=== PATIENT | male | born 1945 | race Caucasian/White ===

== ENCOUNTER 2019-05-19 02:29 | Inpatient (IN) | payer MEDICARE, BC ==
[2019-05-19] VITALS (8 sets, daily range): BP systolic 130–180; BP diastolic 70–92
[~2019-05-19] VITALS: Ht 185.4 cm; Wt 91.8 kg
[~2019-05-19 02:29] MED LIST: BACTRIM-DS1 EA PO; BENICAR5 MG PO; CEPHALEXIN500 MG PO; FISH OIL500 MG PO; FOLIC ACID0.4 MG PO; VICODIN 5-5001 EACH PO
--- NOTE | 2019-05-19 02:45 | NUR ---
ED Nurse Note: Patient walked in to ER from home due to severe abdominal pain. Stated that was at the [employer] and thought it is food poisoning. AAO x4, VSS at this time, skin is dry warm to touch.
[2019-05-19] MEDS ORDERED: Isovue-370 150ml vial INJ PRN (03:00)
[2019-05-19] MEDS ORDERED: Morphine Sulfate 4mg/ml Inj (IV USE ONLY) IVP ONE (03:00)
--- NOTE | 2019-05-19 03:12 | Emergency Room Report ---
History of Present Illness General Chief Complaint: Abdominal Pain Source: Patient Present Illness HPI The patient presents with 2 hours of severe lower abdominal pain. He was at a dinner republic[employer] and was drinking alcohol and had shellfish. He has been vomiting without any coffee grounds or blood. He still feels nauseated. The pain is constant and severe. Rates it 9/10. Patient has a history of atrial fibrillation and is on a blood thinner at this time. 2 days ago he was started on Keflex for tear in his nose on the left-hand side. Denies any dysuria, hematuria or change in his bowels. He is never had pain like this before. Intermittent A fib. Suggest to see egg breaker. Patient denies chest pain, shortness of breath edema, calf pain H/O sleep apnea and uses CPAP at home. Hernia surgery did not involve intraabdominal procedure - mesh placed. Allergies: Coded Allergies: No Known Allergies (Unverified , 10/07/12) Patient History Past Medical History: see triage record Past Surgical History: other - hernia surgery Social History: Reports: alcohol use; Denies: smoking - distant history - none > 10 years Social History Narrative Reviewed Nursing Documentation: PMH: Agreed; PSxH: Agreed Nursing Documentation-PMH Hx Hypertension: Yes Hx COPD: Yes - CPAP Hx Cancer: Yes - PROSTATE, IN REMISION Review of Systems All Other Systems: negative except mentioned in HPI Physical Exam Vital Signs Date Time Temp Pulse Resp B/P (MAP) Pulse Ox O2 Delivery O2 Flow Rate FiO2 05/19/19 02:31 97.7 62 16 156/92 (113) 96 Room Air Sp02 EP Interpretation: reviewed, normal General Appearance: well appearing, GCS 15, mild distress Head: normocephalic Eyes: bilateral eye PERRL, bilateral eye EOMI, bilateral eye Scleral Injection ENT: moist mucus membranes Neck: supple Respiratory: lungs clear, normal breath sounds Cardiovascular #1: regular rate, rhythm Cardiovascular #2: 2+ radial (R), 2+ femoral (R), 2+ femoral (L) Gastrointestinal: normal inspection, normal bowel sounds, no mass, non- distended, no guarding, no rebound, tenderness - reported mid-lower abdomen tenderness, but SOFT Genitourinary: no CVA tenderness Musculoskeletal: back normal, normal range of motion Neurologic: alert, oriented x3, grossly normal Psychiatric: other - Pain Skin: no rash Medical Decision Making Diagnostic Impression: Primary Impression: Abdominal pain Qualified Codes: R10.30 - Lower abdominal pain, unspecified Additional Impressions: Leukocytosis Qualified Codes: D72.828 - Other elevated white blood cell count Small bowel obstruction ER Course The patient presents with acute onset lower abdominal pain. Differential includes peripheral diverticulum, aortic aneurysm/dissection, embolic phenomena to mesenteric artery, ischemic bowel, pancreatitis, appendicitis amongst others. Based on the exam and the degree of pain ischemic bowel is highly suspected. The fact that he is on a anticoagulant and there is an acute onset embolic phenomena is highly likely. Before anticoagulation will be started the patient needs to have an aneurysm excluded. Although there are equal pulses femoral he the severity of the pain needs to have this diagnosis ascertained or excluded. Patient will be evaluated with EKG, chest x-ray and labs. A CT angiogram is ordered. EKG without injury. Chest x-ray no infiltrate and mediastinum is normal sized. White count is elevated with a left shift. There is renal insufficiency with a creatinine of 1.4. Her pain after initial dose of morphine. Dilaudid 2 mg given IV. Some relief after this. CT angiogram performed. 5:30 - pain 2/10. Abdomen soft. Pulses equal femorally. Call [facility] again - 5:30. Call [facility] 5:48 - "he is reading it" No aneurism, ASPVD. Small bowel obstruction. Due to the fact pain resolved, consider bowel angina. Contacting his vest busheler Dr. Ramos. 6:15 recall 6:38 - Discussed with Dr. Ramos who wants the patient at [facility]. Working to transfer. Pain 3-4. Wants to move bowels. Repeat Dilaudid. [facility] has no beds. Placed on wait list for transfer. Request of Dr. Lara for surgeon to consult. He will evaluate patient. Not surgical abdomen at time of admission. Laboratory Tests Test 05/19/19 03:00 White Blood Count 11.0 K/UL (4.8-10.8) H Red Blood Count 4.27 M/UL (4.70-6.10) L Hemoglobin 14.2 G/DL (14.2-18.0) Hematocrit 42.7 % (42.0-52.0) Mean Corpuscular Volume 100 FL (80-99) H Mean Corpuscular Hemoglobin 33.4 PG (27.0-31.0) H Mean Corpuscular Hemoglobin Concent 33.3 G/DL (32.0-36.0) Red Cell Distribution Width 12.6 % (11.6-14.8) Platelet Count 300 K/UL (150-450) Mean Platelet Volume 6.7 FL (6.5-10.1) Neutrophils (%) (Auto) 83.8 % (45.0-75.0) H Lymphocytes (%) (Auto) 11.7 % (20.0-45.0) L Monocytes (%) (Auto) 3.9 % (1.0-10.0) Eosinophils (%) (Auto) 0.3 % (0.0-3.0) Basophils (%) (Auto) 0.3 % (0.0-2.0) Prothrombin Time 10.0 SEC (9.30-11.50) Prothrombin Time INR 0.9 (0.9-1.1) PTT 23 SEC (23-33) Sodium Level 140 MMOL/L (136-145) Potassium Level 4.7 MMOL/L (3.5-5.1) Chloride Level 106 MMOL/L (98-107) Carbon Dioxide Level 26 MMOL/L (21-32) Anion Gap 8 mmol/L (5-15) Blood Urea Nitrogen 26 mg/dL (7-18) H Creatinine 1.4 MG/DL (0.55-1.30) H Estimate Glomerular Filtration Rate mL/min (>60) Glucose Level 137 MG/DL (74-106) H Calcium Level 10.2 MG/DL (8.5-10.1) H Total Bilirubin 0.5 MG/DL (0.2-1.0) Aspartate Amino Transferase (AST) 37 U/L (15-37) Alanine Aminotransferase (ALT) 38 U/L (12-78) Alkaline Phosphatase 56 U/L (46-116) Total Creatine Kinase 310 U/L (26-308) H Troponin I 0.009 ng/mL (0.000-0.056) Total Protein 7.7 G/DL (6.4-8.2) Albumin 4.0 G/DL (3.4-5.0) Globulin 3.7 g/dL Albumin/Globulin Ratio 1.1 (1.0-2.7) Lipase 118 U/L (73-393) EKG Diagnostic Results Rate: bradycardiac Rhythm: NSR ST Segments: no acute changes Rhythm Strip Diag. Results EP Interpretation: yes Rhythm: no PVC's, no ectopy, other - bradycardia Chest X-Ray Diagnostic Results Chest X-Ray Diagnostic Results : Chest X-Ray Ordered: Yes # of Views/Limited/Complete: 1 View Indication: Other EP Interpretation: Yes Interpretation: no consolidation, no effusion, no pneumothorax, other - No mediastinal widening Impression: No acute disease Electronically Signed by: Electronically signed by Neil Treadwell MD CT/MRI/US Diagnostic Results CT/MRI/US Diagnostic Results : Imaging Test Ordered: CTA abdomen/pelvis Impression Atherosclerotic changes without AAA or dissection. Dilated fluid-filled small bowel suspicious for obstructive process with suspected distal transition in left lower quadrant. Trace free fluid with interloop/mesenteric edema. Recommend follow-up. Last Vital Signs Date Time Temp Pulse Resp B/P (MAP) Pulse Ox O2 Delivery O2 Flow Rate FiO2 05/19/19 08:16 Nasal Cannula 2.0 05/19/19 08:00 97.2 51 17 133/74 (93) 98 Status: improved Disposition: ADMITTED INPATIENT Condition: Serious Neil Treadwell MD May 19, 2019 03:12
[2019-05-19 03:14] LABS: BASOPHILS % (AUTO) 0.3 % (0.0-2.0); EOSINOPHILS % (AUTO) 0.3 % (0.0-3.0); HEMATOCRIT 42.7 % (42.0-52.0); HEMOGLOBIN 14.2 G/DL (14.2-18.0); LYMPHOCYTES % (AUTO) 11.7 % (20.0-45.0); MEAN CORPUSCULAR VOLUME 100 FL (80-99); MONOCYTES % (AUTO) 3.9 % (1.0-10.0); NEUTROPHILS % (AUTO) 83.8 % (45.0-75.0); PLATELET COUNT 300 K/UL (150-450); RED BLOOD COUNT 4.27 M/UL (4.70-6.10); RED CELL DISTRIBUTION WIDTH 12.6 % (11.6-14.8)
--- NOTE | 2019-05-19 03:20 | NUR ---
ED Nurse Note: After pain meds, patient stiil in severe pain 07/11. EEPiero VENEGAS notifyed.
[2019-05-19 03:23] LABS: ANION GAP 8 mmol/L (5-15); BLOOD UREA NITROGEN 26 mg/dL (7-18); CALCIUM 10.2 MG/DL (8.5-10.1); CARBON DIOXIDE 26 MMOL/L (21-32); CHLORIDE 106 MMOL/L (98-107); CREATININE 1.4 MG/DL (0.55-1.30); INR 0.9 (0.9-1.1); POTASSIUM 4.7 MMOL/L (3.5-5.1); SODIUM 140 MMOL/L (136-145)
[2019-05-19 03:27] LABS: ALANINE AMINOTRANSFERASE 38 U/L (12-78); ALBUMIN/GLOBULIN RATIO 1.1 (1.0-2.7); ALKALINE PHOSPHATASE 56 U/L (46-116); ASPARTATE AMINO TRANSFERASE 37 U/L (15-37); BILIRUBIN,TOTAL 0.5 MG/DL (0.2-1.0); CREATINE KINASE 310 U/L (26-308)
--- NOTE | 2019-05-19 04:05 | NUR ---
ED Nurse Note: After second pain medication patient stated that do not have pain. AAO x4, VSS at this time, no acute distress noticed.
[2019-05-19] MEDS ORDERED: MONTELUKAST SODI5 MG ORAL (04:29)
[2019-05-19] MEDS ORDERED: ELIQUIS2.5 MG PO (04:29)
[2019-05-19] MEDS ORDERED: BENICAR5 MG ORAL (04:29)
[2019-05-19] MEDS ORDERED: BIOTIN10 MG PO (04:29)
[2019-05-19] MEDS ORDERED: OMEPRAZOLE40 M1 ORAL (04:29)
[2019-05-19] MEDS ORDERED: VITAMIN B122500 MCG PO (04:29)
[2019-05-19] MEDS ORDERED: FEXOFENADINE H180 MG PO (04:29)
[2019-05-19] MEDS ORDERED: Piperacillin/Tazobactam 3.375 GM in NS 110 ML IVPB ONE (05:30)
--- NOTE | 2019-05-19 05:56 | Diagnostic Imaging Report ---
EXAM: CT Angiography Abdomen + Pelvis With Intravenous Contrast CLINICAL HISTORY: ABD PAIN TECHNIQUE: Axial computed tomographic angiography images of the abdomen + pelvis with intravenous contrast. CTDI is 27.84 mGy and DLP is 1398.79 mGy-cm. One or more of the following dose reduction techniques were used: automated exposure control, adjustment of the mA and/or kV according to patient size, use of iterative reconstruction technique. MIP reconstructed images were created and reviewed. COMPARISON: No relevant prior studies available. FINDINGS: Trace pericardial effusion. Small hiatal hernia. Atelectasis. Atherosclerotic changes. The aorta is non-aneurysmal without dissection. Visceral branches of the aorta which are within the resolution of this exam appear patent including the mesenteric arteries. Accessory right renal artery incidentally noted. No high-grade stenosis of the renal arteries is seen. No evidence for acute pancreatitis or other acute abnormality of the solid viscera. Adrenal thickening. Dilated fluid-filled small bowel loops. At this time, proximal small bowel is decompressed as is small bowel distal to dilated small bowel. Suspected distal transition point in the left lower quadrant. Findings are suspicious for partial and/or developing obstructive process. Trace free fluid with interloop/mesenteric edema. No pneumatosis or portal venous gas. No free air. Diverticulosis. Portions of the colon underdistended limiting evaluation for mural thickening. No diverticulitis is appreciated. The appendix is not visualized. Osseous degenerative changes. Transitional lumbosacral vertebra with pseudarthrosis on the right. IMPRESSION: Atherosclerotic changes without AAA or dissection. Dilated fluid-filled small bowel suspicious for obstructive process with suspected distal transition in left lower quadrant. Trace free fluid with interloop/mesenteric edema. Recommend follow-up. Trace pericardial effusion and other findings, as above.
--- NOTE | 2019-05-19 05:58 | Diagnostic Imaging Report ---
EXAM: XR Chest, 1 View CLINICAL HISTORY: ABD PAIN TECHNIQUE: Frontal view of the chest. COMPARISON: No relevant prior studies available. FINDINGS: Cardiac silhouette borderline in size. No evidence for overt edema, consolidation or other acute cardiopulmonary process. Atelectasis. IMPRESSION: No acute cardiopulmonary findings. Hypoventilatory changes/atelectasis.
[2019-05-19] MEDS ORDERED: Hydromorphone 0.5mg/0.5ml inj IVP ONE (07:00)
--- NOTE | 2019-05-19 07:49 | NUR ---
TRANSFER TO FLOOR: Patient transferred to Med surg unit as ordered. Report given to Kisha RUBIN. Belongings was given with the patient. Accompanied by
--- NOTE | 2019-05-19 08:00 | NUR ---
NURSE NOTES: received patient from ER via gurney. patient is alert and oriented x4. Not in acute respiratory/cardiac distress. Vital sign stable. Afebrile. Patient denies abdominal pain or vomiting @ this time. medical history obtained from the patient. orientation given about the unit, smoking policy, call light use, meal time, and plan of care. All belongings were checked by RN and the patient. Cell phone @ the bedside, no modi, or credit cards. One ring and bracelet were worn by the patient and patient does not want to put them in [facility] safe. Skin intact. IV on AC intact, no s/s of infiltration.Bed is in lowest position and locked. Dr. Lara was paged for admission orders. Awaiting for call.
[2019-05-19] MEDS ORDERED: Morphine Sulfate 4mg/ml Inj (IV USE ONLY) IVP PRN (08:45)
--- NOTE | 2019-05-19 08:46 | NUR ---
NURSE NOTES: received partial admission orders from Dr. Dandy Lara. Dr. Lara said he was coming in an hour and will give more admission order. Patient is asleep @ this time. No s/s of pain or discomfort. Will continue to monitor.
[2019-05-19] MEDS: D5 1/2NS 1,000 ML IV SCH ×2 (09:27→21:46)
[2019-05-19] MEDS: Morphine Sulfate 2mg/ml Inj(IV/IM USE ONLY) IVP PRN ×3 (11:03→20:28)
--- NOTE | 2019-05-19 12:20 | History & Physical ---
History and Physical History & Physicial HP dictated # [id number] Dandy Lara MD May 19, 2019 12:20
[2019-05-19] MEDS: Pantoprazole Inj IVP SCH (12:40)
[2019-05-19] MEDS ORDERED: Fleet's Enema 133ml RECTAL PRN (12:45)
[2019-05-19] MEDS ORDERED: Losartan 50mg tab ORAL SCH (13:00)
--- NOTE | 2019-05-19 14:29 | Consultation ---
History of Present Illness General Date patient seen: May 19, 2019 Time patient seen: 14:10 Chief Complaint: Abdominal Pain Referring physician: Dr. Lara. I am covering for Dr. Horne Reason for Consultation: small bowel obstruction Present Illness HPI 73yo M with h/o afib on eliquis, and hernia repair with mesh presented last night with 1-2 days of abdominal pain, n/v and constipation. Has had a small amt of liquid bowel movement this AM after enema but otherwise no output. denies fever/chills. has never had similar pain. Pain is currently diffuse throughout abdomen. Allergies: Coded Allergies: No Known Allergies (Unverified , 10/07/12) Medication History Scheduled Cephalexin* (Keflex*), 500 MG PO QID Folic Acid (Folic Acid), 0.4 MG PO DAILY, (Reported) Hydrocodone/Acetaminophen 5-500 (Vicodin 5-500), 1-2 TAB PO Q4HR Montelukast Sodium (Montelukast Sodium), 10 MG ORAL DAILY, (Reported) Olmesartan Medoxomil (Benicar), 10 MG PO DAILY, (Reported) Olmesartan Medoxomil (Benicar), 10 MG ORAL DAILY, (Reported) [place]-3 Fatty Acids (Fish Oil), MG PO DAILY, (Reported) Omeprazole (Omeprazole), 40 MG ORAL DAILY, (Reported) Trimethoprim/Sulfamethoxazole (Bactrim Ds Tablet), 1 TAB PO BID Miscellaneous Medications Apixaban (Eliquis), 2.5 MG PO, (Reported) Biotin (Biotin), 10 MG PO, (Reported) Cyanocobalamin (Vitamin B-12) (Vitamin B12), 1,000 MCG PO, (Reported) Fexofenadine Hcl (Fexofenadine Hcl), 180 MG PO, (Reported) Patient History History Provided By: Patient Healthcare decision maker Resuscitation status Full Code Advanced Directive on File No Past Medical/Surgical History Past Medical/Surgical History: (1) H/O hernia repair (2) Afib Review of Systems Constitutional: Reports: no symptoms Eye: Reports: no symptoms ENT: Reports: no symptoms Respiratory: Reports: no symptoms Cardiovascular: Reports: no symptoms Gastrointestinal: Reports: abdominal pain, constipation, nausea, vomiting Musculoskeletal: Reports: no symptoms Skin: Reports: no symptoms Psychiatric: Reports: no symptoms Neurological: Reports: no symptoms Endocrine: Reports: no symptoms Hematologic/Lymphatic: Reports: other ROS Narrative on eliquis Physical Exam General Appearance: alert HEENT: normocephalic, atraumatic Neck: supple Respiratory/Chest: no respiratory distress Cardiovascular/Chest: regular rhythm Abdomen: soft, tender, other - moderately distended Extremities: no edema Neurologic: alert Last 24 Hour Vital Signs Date Time Temp Pulse Resp B/P (MAP) Pulse Ox O2 Delivery O2 Flow Rate FiO2 05/19/19 12:42 155/78 05/19/19 12:00 97.2 56 18 155/78 (103) 98 05/19/19 09:00 Nasal Cannula 2.0 05/19/19 08:16 Nasal Cannula 2.0 05/19/19 08:00 97.2 51 17 133/74 (93) 98 05/19/19 07:49 98.0 60 17 130/70 99 Room Air 05/19/19 07:48 98.0 60 17 130/70 99 Room Air 05/19/19 07:28 97.7 05/19/19 06:19 97.7 47 16 145/89 96 Room Air 05/19/19 03:37 97.7 05/19/19 03:37 97.7 05/19/19 02:50 62 16 Room Air 05/19/19 02:50 97.7 68 16 156/92 96 Room Air 05/19/19 02:31 97.7 62 16 156/92 (113) 96 Room Air Intake and Output 05/18/19 05/19/19 19:00 07:00 # Voids 1 Laboratory Tests Test 05/19/19 03:00 05/19/19 10:45 White Blood Count 11.0 K/UL (4.8-10.8) H Red Blood Count 4.27 M/UL (4.70-6.10) L Hemoglobin 14.2 G/DL (14.2-18.0) Hematocrit 42.7 % (42.0-52.0) Mean Corpuscular Volume 100 FL (80-99) H Mean Corpuscular Hemoglobin 33.4 PG (27.0-31.0) H Mean Corpuscular Hemoglobin Concent 33.3 G/DL (32.0-36.0) Red Cell Distribution Width 12.6 % (11.6-14.8) Platelet Count 300 K/UL (150-450) Mean Platelet Volume 6.7 FL (6.5-10.1) Neutrophils (%) (Auto) 83.8 % (45.0-75.0) H Lymphocytes (%) (Auto) 11.7 % (20.0-45.0) L Monocytes (%) (Auto) 3.9 % (1.0-10.0) Eosinophils (%) (Auto) 0.3 % (0.0-3.0) Basophils (%) (Auto) 0.3 % (0.0-2.0) Prothrombin Time 10.0 SEC (9.30-11.50) Prothromb Time International Ratio 0.9 (0.9-1.1) Activated Partial Thromboplast Time 23 SEC (23-33) Sodium Level 140 MMOL/L (136-145) Potassium Level 4.7 MMOL/L (3.5-5.1) Chloride Level 106 MMOL/L (98-107) Carbon Dioxide Level 26 MMOL/L (21-32) Anion Gap 8 mmol/L (5-15) Blood Urea Nitrogen 26 mg/dL (7-18) H Creatinine 1.4 MG/DL (0.55-1.30) H Estimat Glomerular Filtration Rate mL/min (>60) Glucose Level 137 MG/DL (74-106) H Calcium Level 10.2 MG/DL (8.5-10.1) H Total Bilirubin 0.5 MG/DL (0.2-1.0) Aspartate Amino Transf (AST/SGOT) 37 U/L (15-37) Alanine Aminotransferase (ALT/SGPT) 38 U/L (12-78) Alkaline Phosphatase 56 U/L (46-116) Total Creatine Kinase 310 U/L (26-308) H Troponin I 0.009 ng/mL (0.000-0.056) Total Protein 7.7 G/DL (6.4-8.2) Albumin 4.0 G/DL (3.4-5.0) Globulin 3.7 g/dL Albumin/Globulin Ratio 1.1 (1.0-2.7) Lipase 118 U/L (73-393) Lactic Acid Level 0.80 mmol/L (0.4-2.0) Height (Feet): 6 Height (Inches): 1.00 Weight (Pounds): 199 Medications Current Medications Medications (Trade) Dose Ordered Sig/Pavan Route PRN Reason Start Time Stop Time Status Last Admin Dose Admin Apixaban (Eliquis) 2.5 mg BID ORAL 05/19/19 18:00 06/18/19 17:59 Dextrose/Sodium Chloride 1,000 ml @ 75 mls/hr [id number] IV 05/19/19 08:45 06/18/19 08:44 05/19/19 09:27 Iopamidol (Isovue-370 150ml) 150 ml NOW PRN INJ Radiology Procedure 05/19/19 03:00 05/21/19 02:51 Losartan Potassium (Cozaar) 50 mg DAILY ORAL 05/19/19 13:00 06/18/19 12:59 05/19/19 12:42 Morphine Sulfate (Morphine Sulfate) 3 mg Q3H PRN IVP Moderate Pain (Pain Scale 4-6) 05/19/19 08:45 05/26/19 08:44 05/19/19 14:14 Morphine Sulfate (Morphine Sulfate) 5 mg Q3H PRN IVP Severe Pain (Pain Scale 7-10) 05/19/19 08:45 05/26/19 08:44 Ondansetron HCl (Zofran) 4 mg Q6H PRN IVP Nausea & Vomiting 05/19/19 12:15 06/18/19 12:14 05/19/19 14:21 Pantoprazole (Protonix) 40 mg DAILY IVP 05/19/19 12:15 06/18/19 12:14 05/19/19 12:40 Sodium Phosphate (Fleet's Sodium Phosl Enema) 133 ml DAILYPRN PRN RECTAL Constipation 05/19/19 12:45 06/18/19 12:44 05/19/19 13:47 Objective Narrative I personally reviewed the imaging and the radiologist's read is listed below: "Atherosclerotic changes without AAA or dissection. Dilated fluid-filled small bowel suspicious for obstructive process with suspected distal transition in left lower quadrant. Trace free fluid with interloop/mesenteric edema. Recommend follow-up. Trace pericardial effusion and other findings, as above." Assessment/Plan Assessment/Plan: 73yo M with h/o afib on eliquis now with SBO, uncomfortable and distended but lactate normal. -NPO -insert NG, NG-LIS -please flush NG q4 hrs with 30cc NS to keep patient -ambulate frequently with assistance -hold eliquis -will monitor closely Thank you Dania Ortiz MD May 19, 2019 14:29
--- NOTE | 2019-05-19 14:30 | NUR ---
NURSE NOTES: fleet enema was given and patient had small amount of tanned colored bowel movement.
--- NOTE | 2019-05-19 15:17 | NUR ---
NURSE NOTES: patient was seen by Dania VENEGAS who is covering for Dr. Horne and RN received order to insert NGT with low intermittent suction, d/c eliquis just in case he needs surgery and KUB after NGT insertion. All orders verified. NGT was inserted to the right nostril by charge nurse. No bleeding, SOB while inserting the NGT.Radiology was called and awaiting. Will continue to monitor.
--- NOTE | 2019-05-19 16:10 | NUR ---
NURSE NOTES: KUB done @ the bedside and NGT was connected to suction and suctioning well.
--- NOTE | 2019-05-19 16:45 | History and Physical Report ---
DATE OF ADMISSION: 05/19/2019 CHIEF COMPLAINT: Abdominal pain and vomiting. HISTORY OF PRESENT ILLNESS: This is a 73-year-old white male, who was in his usual state of health until last night when he was in a birthday alliance party. He had some drinks around 7 o'clock and also some shellfish. At 11 o'clock, he started having severe lower abdominal pain. He went home, but he vomited couple of times and continued to have pain and he came to the emergency room. He had a CT scan of the abdomen and pelvis showing atherosclerotic changes without aortic dissection. However, there was also dilated fluid-filled small bowel suspicious for obstructive process with suspected distal transition in the left lower quadrant. The patient states that he has not passed gas and has not have any bowel movement since yesterday. PAST MEDICAL HISTORY: Includes history of intermittent atrial fibrillation for which he was started on Eliquis about a month ago. He is supposed to follow with his developmental education instructor in [facility] for further workup. He has history of sleep apnea on CPAP, history of hypertension. He has history of gastroesophageal reflux disease. Recently, he was started on Keflex because of some infection with left nostril. MEDICATIONS: Reviewed in [facility] Link. SOCIAL HISTORY: Social drinker. No history of alcohol abuse, but he drinks socially. No history of smoking. He lives with a partner. He is retired. He used to be in real estate business. ALLERGIES: No known drug allergies. REVIEW OF SYSTEMS: Noncontributory except above. PHYSICAL EXAMINATION: GENERAL: The patient is a pleasant male, in no acute distress. VITAL SIGNS: Blood pressure 133/74, pulse 51, respirations 17, and temperature 97.2 degrees. HEENT: [place] conjunctivae. Anicteric sclerae. Neck is supple. LUNGS: Clear to auscultation. HEART: S1 and S2 without murmurs or rubs. ABDOMEN: Soft. There is lower abdominal tenderness. EXTREMITIES: No cyanosis or edema. LABORATORY FINDINGS: CBC shows WBC of 11,000, hematocrit is 42.7, hemoglobin is 14.2, and platelet is 300,000. Chemistry panel shows serum sodium 140, potassium 4.7, chloride 106, CO2 26, BUN is 26, creatinine 1.4, calcium is 10.2, albumin is 4. ASSESSMENT: This is a 73-year-old male, who is admitted with abdominal pain and vomiting. On CAT scan, he has some small bowel obstruction. He has history of atrial fibrillation. His serum creatinine is slightly elevated possibly as a result of prerenal azotemia. He has history of sleep apnea on CPAP. Recent infection in the left nostril treated with Keflex. PLAN: The patient will be NPO. IV fluids will be administered. Pain medication was prescribed. The patient was seen by Dr. Hernandez for GI and Dr. Horne for surgery. I will start the patient on IV Protonix. Laboratories will be followed and further adjustment will be made in the patient's regimen. Dandy Lara M.D. DR: Cullen JOB#: [id number] CC: MAGALI
--- NOTE | 2019-05-19 17:57 | NUR ---
NURSE NOTES: patient walked the hallway with assist without any difficulty.
[2019-05-19] MEDS ORDERED: Eliquis 2.5mg tablet ORAL SCH (18:00)
--- NOTE | 2019-05-19 18:29 | NUR ---
NURSE NOTES: Patient is on bed, asleep. NGT in place draining well with dark brown colored drainage. Dr. Dania Ortiz checked the drainage earlier.
--- NOTE | 2019-05-19 19:23 | NUR ---
HAND-OFF: Report given to Luis.
--- NOTE | 2019-05-19 19:25 | NUR ---
NURSE NOTES: Endorsed to the next shift nurse not to use NGT for med and no po meds except cozaar and do not clamp blue lumen of NGT.
--- NOTE | 2019-05-19 19:45 | NUR ---
NURSE NOTES: Pt lying in bed w/bed in lowest position and call light within reach. Pt A&Ox4, VSS, and in no apparent distress. IV site intact/asymptomatic w/IVF infusing and NGT to rt nare on low/int suction. Will continue to monitor.
--- NOTE | 2019-05-19 21:15 | NUR ---
NURSE NOTES: Marj from [facility] transfer center called regarding pt's labor and employment paralegal, Dr. Ramos's, request to transfer to [facility]; states there is no available bed at the moment, financial clearance is needed prior to transfer, and will follow up tomorrow. Informed pt's at bedside. Will continue to monitor.
[2019-05-19] MEDS ORDERED: Losartan 25mg tab ORAL SCH (21:30)
[2019-05-19] MEDS ORDERED: Fleet's Enema 133ml RECTAL SCH (21:30)
--- NOTE | 2019-05-19 22:30 | NUR ---
NURSE NOTES: Pt's at bedside requesting I contact MD for another enema, stool softener, and to see if he'd like to continue BP home med. Dr. Lara ordered another Fleet's enema x 1, did not continue BP home med but instead made Cozaar 50 mg BID and did not order stool softener. Informed pt and carried out orders; pt has yet to have BM after enema. Will continue to monitor.
[2019-05-20] VITALS: BP 157/86
[2019-05-20] MEDS: Morphine Sulfate 2mg/ml Inj(IV/IM USE ONLY) IVP PRN ×3 (03:35→17:07)
[2019-05-20 04:00] VITALS: BP 158/79
[2019-05-20 06:42] LABS: HEMATOCRIT 40.6 % (42.0-52.0); HEMOGLOBIN 13.9 G/DL (14.2-18.0); MEAN CORPUSCULAR VOLUME 100 FL (80-99); PLATELET COUNT 283 K/UL (150-450); RED BLOOD COUNT 4.06 M/UL (4.70-6.10); RED CELL DISTRIBUTION WIDTH 12.7 % (11.6-14.8); WHITE BLOOD COUNT 20.7 K/UL (4.8-10.8)
[2019-05-20 07:01] LABS: ANION GAP 6 mmol/L (5-15); BLOOD UREA NITROGEN 17 mg/dL (7-18); CALCIUM 9.6 MG/DL (8.5-10.1); CARBON DIOXIDE 30 MMOL/L (21-32); CHLORIDE 107 MMOL/L (98-107); CREATININE 1.2 MG/DL (0.55-1.30); POTASSIUM 4.9 MMOL/L (3.5-5.1); SODIUM 142 MMOL/L (136-145)
--- NOTE | 2019-05-20 07:48 | NUR ---
HAND-OFF: Report given to SCOTTIE Adkins.
--- NOTE | 2019-05-20 07:57 | NUR ---
NURSE NOTES: Pt requested to walk. Up and walking. Denies pain. Gait is steady
--- NOTE | 2019-05-20 08:03 | General Surgery Progress Note ---
General Surgery-Progress Note Subjective Reason for Consult SBO. I am covering for Dr. Horne Chief Complaint: abdominal pain Symptoms: improved Additional Comments pain still present but improving. denies n/v. ambulating frequently, no flatus Objective Last 24 Hour Vital Signs Date Time Temp Pulse Resp B/P (MAP) Pulse Ox O2 Delivery O2 Flow Rate FiO2 05/20/19 04:00 98.1 65 18 158/79 (105) 98 05/20/19 00:00 97.8 65 18 157/86 (109) 97 05/19/19 21:46 174/79 05/19/19 21:00 62 174/79 (110) 05/19/19 21:00 Room Air 05/19/19 20:30 97.2 67 18 180/90 (120) 98 05/19/19 16:00 98.8 69 18 152/76 (101) 98 05/19/19 12:42 155/78 05/19/19 12:00 97.2 56 18 155/78 (103) 98 05/19/19 09:00 Nasal Cannula 2.0 05/19/19 08:16 Nasal Cannula 2.0 05/19/19 08:00 97.2 51 17 133/74 (93) 98 I&O Intake and Output 05/19/19 05/20/19 19:00 07:00 Intake Total 675 ml 900 ml Output Total 200 ml 90 ml Balance 475 ml 810 ml Intake IV Total 675 ml 900 ml Output Gastric Drainage Total 200 ml Other 90 ml # Voids 5 2 # Bowel Movements 1 Cardiovascular: RSR Respiratory: other - breathing easily on RA Abdomen: other - soft, less tender to palpation, less distended Laboratory Tests Test 05/19/19 10:45 05/20/19 06:15 Lactic Acid Level 0.80 mmol/L (0.4-2.0) White Blood Count 20.7 K/UL (4.8-10.8) #H Red Blood Count 4.06 M/UL (4.70-6.10) L Hemoglobin 13.9 G/DL (14.2-18.0) L Hematocrit 40.6 % (42.0-52.0) L Mean Corpuscular Volume 100 FL (80-99) H Mean Corpuscular Hemoglobin 34.2 PG (27.0-31.0) H Mean Corpuscular Hemoglobin Concent 34.2 G/DL (32.0-36.0) Red Cell Distribution Width 12.7 % (11.6-14.8) Platelet Count 283 K/UL (150-450) Mean Platelet Volume 7.4 FL (6.5-10.1) Neutrophils (%) (Auto) % (45.0-75.0) Lymphocytes (%) (Auto) % (20.0-45.0) Monocytes (%) (Auto) % (1.0-10.0) Eosinophils (%) (Auto) % (0.0-3.0) Basophils (%) (Auto) % (0.0-2.0) Neutrophils % (Manual) Pending Lymphocytes % (Manual) Pending Platelet Estimate Pending Platelet Morphology Pending Sodium Level 142 MMOL/L (136-145) Potassium Level 4.9 MMOL/L (3.5-5.1) Chloride Level 107 MMOL/L (98-107) Carbon Dioxide Level 30 MMOL/L (21-32) Anion Gap 6 mmol/L (5-15) Blood Urea Nitrogen 17 mg/dL (7-18) Creatinine 1.2 MG/DL (0.55-1.30) Estimat Glomerular Filtration Rate mL/min (>60) Glucose Level 154 MG/DL (74-106) H Calcium Level 9.6 MG/DL (8.5-10.1) Assessment Additional Comments 73yo M with SBO, pain and distension somewhat improved after NG decompression but worsening leukocytosis -NPO -NG-LIS -ambulate frequently -please advance NG 10cm -will order SBFT today -will monitor abd exam closely Thank you Dania Ortiz MD May 20, 2019 08:03
[2019-05-20] MEDS: Losartan 50mg tab ORAL SCH ×2 (09:00→17:00)
--- NOTE | 2019-05-20 09:19 | NUR ---
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 PT has vomited, denies diarrhea. SI: ABD pain VS: BP: 156/92 HR: 62 RR 16 02 Sat 96% (RA) T: 97.7 NT: WBC 11.0 Lymph% 11.7 BUN 26 Creatinine 1.4 Calcium 10.2 Creatine Kinase 310 CXR: No acute cardiopulmonary findings. Hypoventilatory changes/atelectasis. CT Abdomen/pelvis w/ Contrast: Atherosclerotic changes without AAA or dissection. Dilated fluid-filled small bowel suspicious for obstructive process with suspected distal transition in left lower quadrant. Trace free fluid with interloop/mesenteric edema. Recommend followup. IS: Zofran 4mg IVP Morphine 4mg IVP NS 1000ml IV NS 1000ml IV Admitted to MedSurg MedSurg status DCP: Pending Hospital Stay
--- NOTE | 2019-05-20 09:36 | General Progress Note ---
Assessment/Plan Assessment/Plan: Assessment - SBO, presumed due to adhesions Recommendations - NPO - IVF - NGT suction - Follow KUB and exam - surgical f/u Thank you Obi Hernandez MD Subjective Allergies: Coded Allergies: No Known Allergies (Unverified , 10/07/12) Objective Last 24 Hour Vital Signs Date Time Temp Pulse Resp B/P (MAP) Pulse Ox O2 Delivery O2 Flow Rate FiO2 05/20/19 04:00 98.1 65 18 158/79 (105) 98 05/20/19 00:00 97.8 65 18 157/86 (109) 97 05/19/19 21:46 174/79 05/19/19 21:00 62 174/79 (110) 05/19/19 21:00 Room Air 05/19/19 20:30 97.2 67 18 180/90 (120) 98 05/19/19 16:00 98.8 69 18 152/76 (101) 98 05/19/19 12:42 155/78 05/19/19 12:00 97.2 56 18 155/78 (103) 98 Intake and Output 05/19/19 05/20/19 19:00 07:00 Intake Total 675 ml 900 ml Output Total 200 ml 90 ml Balance 475 ml 810 ml Intake IV Total 675 ml 900 ml Output Gastric Drainage Total 200 ml Other 90 ml # Voids 5 2 # Bowel Movements 1 Laboratory Tests 05/19/19 10:45: Lactic Acid Level 0.80 05/20/19 06:15: White Blood Count 20.7#H, Red Blood Count 4.06L, Hemoglobin 13.9L, Hematocrit 40.6L, Mean Corpuscular Volume 100H, Mean Corpuscular Hemoglobin 34.2H, Mean Corpuscular Hemoglobin Concent 34.2, Red Cell Distribution Width 12.7, Platelet Count 283, Mean Platelet Volume 7.4, Neutrophils (%) (Auto) , Lymphocytes (%) ( Auto) , Monocytes (%) (Auto) , Eosinophils (%) (Auto) , Basophils (%) (Auto) , Differential Total Cells Counted 100, Neutrophils % (Manual) 81H, Lymphocytes % (Manual) 7L, Monocytes % (Manual) 6, Eosinophils % (Manual) 0, Basophils % ( Manual) 0, Band Neutrophils 6, Platelet Estimate Adequate, Platelet Morphology Normal, Macrocytosis 1+, Sodium Level 142, Potassium Level 4.9, Chloride Level 107, Carbon Dioxide Level 30, Anion Gap 6, Blood Urea Nitrogen 17, Creatinine 1.2, Estimat Glomerular Filtration Rate , Glucose Level 154H, Calcium Level 9.6 Height (Feet): 6 Height (Inches): 1.00 Weight (Pounds): 199 Obi Hernandez MD May 20, 2019 09:36
[2019-05-20] MEDS: Pantoprazole Inj IVP SCH (09:45)
[2019-05-20] MEDS ORDERED: D5 1/2NS 1000ml IV ONE (09:58)
[2019-05-20] MEDS ORDERED: Tubing IV Secondary IV ONE (09:58)
[2019-05-20] MEDS ORDERED: NS Irrig 1000ml ONE (09:58)
[2019-05-20] MEDS: D5 1/2NS 1,000 ML IV SCH ×2 (11:25→16:00)
--- NOTE | 2019-05-20 11:25 | Diagnostic Imaging Report ---
Indication: Post nasogastric tube placement Technique: Supine view of the abdomen Comparison: none Findings: There is a nasogastric tube in place, tip of which projects just beyond the gastroesophageal junction, proximal port projecting above the expected level of gastroesophageal junction. Dilated small bowel loops are seen in the left upper quadrant. Contrast from recent CT scan is seen within the bladder Impression: High position of nasogastric tube. This has subsequently been corrected
--- NOTE | 2019-05-20 13:30 | NUR ---
NURSE NOTES: Pt went down for procedure. Cap Sewer was called down to advance NG tube. Pain medication given, pt is ambulatory. Suction on functioning
[2019-05-20] MEDS ORDERED: Piperacillin/Tazobactam 3.375 GM in NS 110 ML IVPB SCH (14:00)
--- NOTE | 2019-05-20 14:11 | NUR ---
NURSE NOTES: Spoke to regarding patient and new order received. Order read back and carried out.
--- NOTE | 2019-05-20 15:29 | Infectious Diseases Prog Note ---
Assessment/Plan Assessment/Plan Full consult dictated: A) 1) small bowel obstruction 2) possible sepsis, leukocytosis 3) allergies - nkda P) 1) zoysn 2) surgery f/u, GI f/u 3) d/w Dr. Lara 4) monitor labs 5) thank you Subjective Allergies: Coded Allergies: No Known Allergies (Unverified , 10/07/12) Objective Vital Signs Last 24 Hour Vital Signs Date Time Temp Pulse Resp B/P (MAP) Pulse Ox O2 Delivery O2 Flow Rate FiO2 05/20/19 09:00 Room Air 05/20/19 04:00 98.1 65 18 158/79 (105) 98 05/20/19 00:00 97.8 65 18 157/86 (109) 97 05/19/19 21:46 174/79 05/19/19 21:00 62 174/79 (110) 05/19/19 21:00 Room Air 05/19/19 20:30 97.2 67 18 180/90 (120) 98 05/19/19 16:00 98.8 69 18 152/76 (101) 98 Height (Feet): 6 Height (Inches): 1.00 Weight (Pounds): 199 Laboratory Tests Test 05/20/19 06:15 White Blood Count 20.7 K/UL (4.8-10.8) #H Red Blood Count 4.06 M/UL (4.70-6.10) L Hemoglobin 13.9 G/DL (14.2-18.0) L Hematocrit 40.6 % (42.0-52.0) L Mean Corpuscular Volume 100 FL (80-99) H Mean Corpuscular Hemoglobin 34.2 PG (27.0-31.0) H Mean Corpuscular Hemoglobin Concent 34.2 G/DL (32.0-36.0) Red Cell Distribution Width 12.7 % (11.6-14.8) Platelet Count 283 K/UL (150-450) Mean Platelet Volume 7.4 FL (6.5-10.1) Neutrophils (%) (Auto) % (45.0-75.0) Lymphocytes (%) (Auto) % (20.0-45.0) Monocytes (%) (Auto) % (1.0-10.0) Eosinophils (%) (Auto) % (0.0-3.0) Basophils (%) (Auto) % (0.0-2.0) Differential Total Cells Counted 100 Neutrophils % (Manual) 81 % (45-75) H Lymphocytes % (Manual) 7 % (20-45) L Monocytes % (Manual) 6 % (1-10) Eosinophils % (Manual) 0 % (0-3) Basophils % (Manual) 0 % (0-2) Band Neutrophils 6 % (0-8) Platelet Estimate Adequate Platelet Morphology Normal Macrocytosis 1+ Sodium Level 142 MMOL/L (136-145) Potassium Level 4.9 MMOL/L (3.5-5.1) Chloride Level 107 MMOL/L (98-107) Carbon Dioxide Level 30 MMOL/L (21-32) Anion Gap 6 mmol/L (5-15) Blood Urea Nitrogen 17 mg/dL (7-18) Creatinine 1.2 MG/DL (0.55-1.30) Estimat Glomerular Filtration Rate mL/min (>60) Glucose Level 154 MG/DL (74-106) H Calcium Level 9.6 MG/DL (8.5-10.1) Current Medications Medications (Trade) Dose Ordered Sig/Pavan Route PRN Reason Start Time Stop Time Status Last Admin Dose Admin Clonidine HCl (Catapres Tab) 0.1 mg Q4H PRN ORAL SBP> 160 mm Hg 05/19/19 21:30 06/18/19 21:29 Dextrose/Sodium Chloride 1,000 ml @ 75 mls/hr [id number] IV 05/19/19 08:45 06/18/19 08:44 05/19/19 21:46 Iopamidol (Isovue-370 150ml) 150 ml NOW PRN INJ Radiology Procedure 05/19/19 03:00 05/21/19 02:51 Losartan Potassium (Cozaar) 50 mg BID ORAL 05/20/19 09:00 06/18/19 12:59 Morphine Sulfate (Morphine Sulfate) 3 mg Q3H PRN IVP Moderate Pain (Pain Scale 4-6) 05/19/19 08:45 05/26/19 08:44 05/20/19 09:47 Morphine Sulfate (Morphine Sulfate) 5 mg Q3H PRN IVP Severe Pain (Pain Scale 7-10) 05/19/19 08:45 05/26/19 08:44 Ondansetron HCl (Zofran) 4 mg Q4H PRN IVP Nausea & Vomiting 05/19/19 21:45 06/18/19 21:44 05/20/19 13:50 Pantoprazole (Protonix) 40 mg DAILY IVP 05/19/19 12:15 06/18/19 12:14 05/20/19 09:45 Piperacillin Sod/ Tazobactam Sod 3.375 gm/Sodium Chloride 110 ml @ 27.5 mls/hr EVERY 8 HOURS IVPB 05/20/19 14:00 05/25/19 13:59 05/20/19 15:14 Sodium Phosphate (Fleet's Sodium Phosl Enema) 133 ml DAILYPRN PRN RECTAL Constipation 05/19/19 12:45 06/18/19 12:44 05/19/19 13:47 Dmitriy Meneess MD May 20, 2019 15:28
[2019-05-20 16:00] VITALS: BP 150/99
--- NOTE | 2019-05-20 16:00 | Consultation ---
DATE OF CONSULTATION: 05/20/2019 GASTROENTEROLOGY CONSULTATION CONSULTING PHYSICIAN: Obi Hernandez M.D. CHIEF COMPLAINT: I was asked to see this patient by Dr. Dandy Lara for evaluation of bowel obstruction. HISTORY OF PRESENT ILLNESS: The patient is a pleasant 73-year-old white man, who comes into the hospital with 1-day history of nausea and vomiting. The patient said he went to a republican and had some drinks and subsequently had vomiting of fluid contents. There was no blood, emesis, or melena. The patient has not had such a presentation before. The only surgical procedure on his abdomen is the right inguinal surgery, which was done about 7 years ago. The patient's last colonoscopy was perhaps about 5 years ago. He sees a colorectal surgeon annually. PAST MEDICAL HISTORY: History of hypertension, history of obstructive sleep apnea, history of in and out atrial fibrillation, on anticoagulation. FAMILY HISTORY: Positive for similar abdominal presentation in mother. SOCIAL HISTORY: The patient drinks occasionally, but does not smoke. REVIEW OF SYSTEMS: Otherwise negative. PHYSICAL EXAMINATION: GENERAL: A pleasant white man, seen in his room, in no distress HEENT: Normocephalic and atraumatic. Sclerae anicteric. Oropharynx clear. NECK: Supple. CHEST: Clear to auscultation. CARDIOVASCULAR: Revealed a regular rate. ABDOMEN: Soft with some left lower quadrant abdominal discomfort. EXTREMITIES: Revealed no edema. LABORATORY DATA: Noted. CT was reviewed. X-ray was noted. ASSESSMENT: This patient presents with small bowel obstruction with a transition point in the left lower quadrant, which is also where his tenderness is. The differential diagnosis would include the typical adhesions, which can cause bowel obstruction in his patient with past surgical history given the risk factor. However, there are other pathologies, which can be considered. For the time being, treatment is conservative. I will keep the patient NPO and maintain nasogastric suction. Should he not clinically improve, then more exploratory approach maybe needed. RECOMMENDATIONS: 1. Keep the patient NPO. 2. Nasogastric suction. 3. Surgical follow up. 4. Follow laboratory parameters and KUB. Thank you for asking me to participate in the care of this patient. Obi Hernandez M.D. DR: SHWETA JOB#: [id number] CC:
--- NOTE | 2019-05-20 16:37 | General Progress Note ---
Assessment/Plan Problem List: (1) Small bowel obstruction ICD Codes: K56.609 - Unspecified intestinal obstruction, unspecified as to partial versus complete obstruction SNOMED: 234524515 (2) HTN (hypertension) Assessment & Plan: ok for now ICD Codes: I10 - Essential (primary) hypertension SNOMED: 45704515 (3) Afib ICD Codes: I48.91 - Unspecified atrial fibrillation SNOMED: 06696498 (4) Leukocytosis Assessment & Plan: worse ICD Codes: D72.829 - Elevated white blood cell count, unspecified SNOMED: 439324407, 738675295 Qualifiers: Qualified Codes: D72.828 - Other elevated white blood cell count Assessment/Plan: IVF NPO abxs ID consult Discussed with pt and his partner at length await X ray studies Discussed with Dr Horne allow higher BP Subjective Allergies: Coded Allergies: No Known Allergies (Unverified , 10/07/12) Subjective nauseated Objective Last 24 Hour Vital Signs Date Time Temp Pulse Resp B/P (MAP) Pulse Ox O2 Delivery O2 Flow Rate FiO2 05/20/19 09:00 Room Air 05/20/19 04:00 98.1 65 18 158/79 (105) 98 05/20/19 00:00 97.8 65 18 157/86 (109) 97 05/19/19 21:46 174/79 05/19/19 21:00 62 174/79 (110) 05/19/19 21:00 Room Air 05/19/19 20:30 97.2 67 18 180/90 (120) 98 Intake and Output 05/19/19 05/20/19 19:00 07:00 Intake Total 675 ml 900 ml Output Total 200 ml 90 ml Balance 475 ml 810 ml Intake IV Total 675 ml 900 ml Output Gastric Drainage Total 200 ml Other 90 ml # Voids 5 2 # Bowel Movements 1 Laboratory Tests 05/20/19 06:15: White Blood Count 20.7#H, Red Blood Count 4.06L, Hemoglobin 13.9L, Hematocrit 40.6L, Mean Corpuscular Volume 100H, Mean Corpuscular Hemoglobin 34.2H, Mean Corpuscular Hemoglobin Concent 34.2, Red Cell Distribution Width 12.7, Platelet Count 283, Mean Platelet Volume 7.4, Neutrophils (%) (Auto) , Lymphocytes (%) ( Auto) , Monocytes (%) (Auto) , Eosinophils (%) (Auto) , Basophils (%) (Auto) , Differential Total Cells Counted 100, Neutrophils % (Manual) 81H, Lymphocytes % (Manual) 7L, Monocytes % (Manual) 6, Eosinophils % (Manual) 0, Basophils % ( Manual) 0, Band Neutrophils 6, Platelet Estimate Adequate, Platelet Morphology Normal, Macrocytosis 1+, Sodium Level 142, Potassium Level 4.9, Chloride Level 107, Carbon Dioxide Level 30, Anion Gap 6, Blood Urea Nitrogen 17, Creatinine 1.2, Estimat Glomerular Filtration Rate , Glucose Level 154H, Calcium Level 9.6 Height (Feet): 6 Height (Inches): 1.00 Weight (Pounds): 199 Respiratory/Chest: lungs clear Abdomen: soft, absent bowel sounds, tender - lower abdomen Dandy Lara MD May 20, 2019 16:37
--- NOTE | 2019-05-20 17:01 | NUR ---
NURSE NOTES: Pt is in pain yet refuse pain medication fearing it will cause more abdominal discomfort. Pt states if he lays still he will be okay.
--- NOTE | 2019-05-20 18:01 | NUR ---
CUTTER OPERATOR BRICK NOTES FACE SHEET FAXED TO [facility].WILL FOLLOW UP.
[2019-05-20 18:14] LABS: APPEARANCE,URINE CLEAR; BILIRUBIN, URINE NEGATIVE (NEGATIVE); GLUCOSE, URINE (UA) 1+ (NEGATIVE); KETONES,URINE 1+ (NEGATIVE); LEUKOCYTE ESTERASE ,URINE 1+ (NEGATIVE); NITRITE,URINE NEGATIVE (NEGATIVE); PH,URINE 6 (4.5-8.0); PROTEIN,URINE 3+ (NEGATIVE); UROBILINOGEN,URINE NORMAL MG/DL (0.0-1.0)
[2019-05-20 18:26] LABS: COLOR,URINE YELLOW
--- NOTE | 2019-05-20 18:39 | NUR ---
NURSE NOTES: Pt continues on NPO status as well as intermittent low suction output was 800 cc very dark almost black thin mucous like consistency . Mild odor, with small yellow floating particles. He is currently sleeping. Pain medication pt is comfortable and relaxed, very restless prior to pain medication
--- NOTE | 2019-05-20 19:55 | NUR ---
HAND-OFF: Report given to .Celestine RUBIN endorsed possible transfer to [facility] , made aware of output 800 gi , and vomitus 400 cc
[2019-05-20 20:00] VITALS: BP 135/85
--- NOTE | 2019-05-20 20:30 | NUR ---
NURSE NOTES: Received report from AM SCOTTIE Adkins. Patient resting in bed on intermittent suction draining 900cc of dark green fluid. No c/o of nausea at this time. abdomen soft and round. VSS, no SOB or signs of distress. Partner at bedside.
[2019-05-20] MEDS: Zosyn 4.5gm in NS 110ml q8h IVPB SCH (22:10)
--- NOTE | 2019-05-20 23:30 | Consultation ---
DATE OF CONSULTATION: 05/20/2019 INFECTIOUS DISEASE CONSULTATION CONSULTING PHYSICIAN: Dmitriy Meneses M.D. ATTENDING PHYSICIAN: Dr. Dandy Lara. REASON FOR CONSULTATION: Bowel obstruction including small-bowel obstruction and possible sepsis with significant leukocytosis. CHIEF COMPLAINT: The patient's chief complaint coming into the hospital is abdominal pain and bowel obstruction. HISTORY OF PRESENT ILLNESS: This is a very pleasant 73-year-old male, who comes in to [facility] with abdominal pain. The patient was at a birthday republican and he had lower abdominal pain. He developed severe abdominal pain and noted to have no bowel movement and he had vomiting. The patient presented to [facility] and a CT scan of the abdomen and pelvis was done on May 19, 2019 and it showed dilated fluid-filled small bowel suspicious for obstructive process. Report was noted. The patient was noted also to have a worsening leukocytosis as of today. Initial white count was 11, now it is 20.7. Infectious Disease consultation was requested for the patient's bowel obstruction and possible sepsis with elevated white count. Lactic acid level was normal. The patient is currently on Zosyn. I will increase the dose to 4.5 g every 8 hours with an extended dosing. Case was discussed with pharmacy about the dosing of Zosyn. MAR was noted. Orders were noted. Notes and records were reviewed. Case was discussed with Dr. Lara and the patient. REVIEW OF SYSTEMS: CONSTITUTIONAL: The patient has no fever, chills, or night sweats mentioned. HEAD AND NECK: He did not mention headache or neck stiffness. CARDIAC: No chest pain. GASTROINTESTINAL: He came in with nausea, vomiting, and lower abdominal pain. GENITOURINARY: No mention of dysuria or frequency. PULMONARY: No congestion or shortness of breath. Mild secretions. SKIN: No rash. EXTREMITY: No extremity pain. NEUROLOGIC: No seizures. No CVA tenderness. He has maybe some fatigue. He has an NG-tube. PAST MEDICAL HISTORY: The patient's past medical history includes the following. The past has a past medical history of hypertension, has history of atrial fibrillation, also hypertension, and atrial fibrillation. He is on Eliquis also. Other past medical history, he has a history of sleep apnea. He has history of GERD. No history of diabetes mentioned. MEDICATIONS: Upon reviewing the MAR, he is on the following medications. He is on Zosyn. He is on Cozaar, Zofran, and Catapres. He has been on Eliquis in the past. He is on pantoprazole with morphine as needed. Outside medications were noted and reconciliated. ALLERGIES: He has no known drug allergies. SOCIAL HISTORY: He is a social drinker. No alcohol or IV drug abuse or smoking history. FAMILY HISTORY: Noncontributory per the records. There is no mention of exposure to tuberculosis or cancer. PHYSICAL EXAMINATION: VITAL SIGNS: Temperature is 98.1, pulse rate 65, respiratory rate 18, blood pressure 158/79, and saturation 98% on room air. GENERAL: Alert and responsive, in no acute distress. HEAD AND NECK: Oral exam, no thrush. Eye exam, no icterus. Neck is supple. No JVD. Normocephalic. HEART: Regular. No obvious gallop or murmur. ABDOMEN: Soft. Decreased bowel sounds. Nontender. No rebound. LUNGS: Clear bilaterally. No rhonchi or rales. SKIN: No rash. MUSCULOSKELETAL: No effusion. No septic arthritis. EXTREMITIES: Without cellulitis. PERIPHERAL VASCULAR: No gangrene. : No Sam. No CVA tenderness. LINE SITES: Without phlebitis. NEUROLOGIC: Intact and nonfocal. Alert and oriented x3. LABORATORY DATA: Creatinine is 1.2. White count 20.7 and hemoglobin 13.9. IMAGING STUDIES: Chest x-ray is no acute cardiopulmonary findings. CT scan of the abdomen and pelvis had dilated fluid-filled small bowel suspicious for obstructive process. CULTURES: Cultures have been ordered. UA has been ordered. ASSESSMENT AND PLAN: 1. The patient has what looks like small bowel obstruction with possible sepsis and elevated white count. Continue Zosyn 4.5 grams every 8 hours of extended dosing for bowel obstruction and sepsis. The patient is being followed by Surgery and has an NG-tube. The patient may need surgery, but this will be deferred to surgery who is following the case as well as GI is following the case. Continue Zosyn for now. Monitor the patient clinically. Monitor bowel obstruction process. We will also check blood cultures, UA, and check white cell count. Zosyn will have excellent anaerobic and gram-negative coverage. 2. The patient has a history of atrial fibrillation. I think it is intermittent. He has been on Eliquis in the past. 3. The patient has history of hypertension. Blood pressure treatment per Dr. Lara. 4. History of sleep apnea. He is on CPAP. 5. History of GERD. 6. No known drug allergies. 7. Social history is negative. 8. Family history is noncontributory. 9. MAR is noted. 10. Case was discussed with RN. 11. Case was discussed with the patient. 12. Case was discussed with Dr. Lara. 13. Continue treatment per primary consultants. Dmitriy Meneses M.D. DR: CHELI JOB#: [id number] CC: MAGALI
[2019-05-21] VITALS (14 sets, daily range): BP systolic 99–133; BP diastolic 53–83
[2019-05-21] MEDS: Morphine Sulfate 2mg/ml Inj(IV/IM USE ONLY) IVP PRN (05:44)
[2019-05-21] MEDS: Zosyn 4.5gm in NS 110ml q8h IVPB SCH ×3 (05:52→22:05)
[2019-05-21 06:13] LABS: HEMATOCRIT 46.7 % (42.0-52.0); HEMOGLOBIN 15.6 G/DL (14.2-18.0); MEAN CORPUSCULAR VOLUME 101 FL (80-99); PLATELET COUNT 286 K/UL (150-450); RED BLOOD COUNT 4.62 M/UL (4.70-6.10); RED CELL DISTRIBUTION WIDTH 12.5 % (11.6-14.8)
[2019-05-21 06:43] LABS: ALANINE AMINOTRANSFERASE 28 U/L (12-78); ALBUMIN 3.6 G/DL (3.4-5.0); ALBUMIN/GLOBULIN RATIO 0.8 (1.0-2.7); ALKALINE PHOSPHATASE 58 U/L (46-116); ANION GAP 5 mmol/L (5-15); ASPARTATE AMINO TRANSFERASE 27 U/L (15-37); BLOOD UREA NITROGEN 22 mg/dL (7-18); CALCIUM 11.1 MG/DL (8.5-10.1); CARBON DIOXIDE 35 MMOL/L (21-32); CHLORIDE 104 MMOL/L (98-107); CREATININE 1.5 MG/DL (0.55-1.30); POTASSIUM 4.6 MMOL/L (3.5-5.1); SODIUM 144 MMOL/L (136-145)
--- NOTE | 2019-05-21 07:31 | NUR ---
HAND-OFF: Report given to Gail Rich RN.
--- NOTE | 2019-05-21 07:35 | NUR ---
NURSE NOTES: Patient lying in bed awake. No complain of pain or distress at this time. Skin intact and dry. IV dressing intact and dry. NG tube connected to suction as ordered. Bed lowest position. Call light within reach. Will continue to monitor.
--- NOTE | 2019-05-21 08:46 | Diagnostic Imaging Report ---
Indication: Abdominal distention, pain, suspected bowel obstruction on recent CT scan Technique: Water-soluble contrast given via nasogastric tube, serial overhead films obtained Comparison: Plain radiograph 05/19/2019, CT scan 05/19/2019 Findings: Critical Care Cns image demonstrates nasogastric tube, tip was barely projects within the stomach, proximal port above the gastroesophageal junction. This was advanced, subsequent electric range assembler image demonstrates satisfactory position of the nasogastric tube. Contrast is seen within the bladder from prior CT scan. Dilated gas-filled small bowel loops are noted, predominantly in the left upper quadrant. After contrast given, there is opacification of the stomach and nondilated proximal jejunum. There is reflux of contrast into the esophagus noted. Subsequent images demonstrate progression of contrast into dilated jejunal loops which fill slowly. On later images, no definite contrast is seen to pass into distal nondilated small bowel. On the 5 1/2 hour image, a pelvic small bowel loop is opacified, but this is probably still proximal to the transition point. On subsequent images, contrast opacification is suboptimal, probably due to retrograde evacuation through the nasogastric tube as well as dilution of the contents. Contrast is still seen filling the dilated proximal small bowel loops, and no definite distal small bowel opacification or colonic opacification is demonstrated. Impression: Somewhat limited exam, due to dilution of contrast on delayed images resulting in suboptimal bowel contrast opacification. Nonetheless, findings are suspicious for high-grade small bowel obstruction, with markedly dilated proximal small bowel loops, no contrast seen to pass distally into distal nondilated small bowel or colon even on the delayed images. Findings discussed by phone with Dr. Horne at the time of interpretation
[2019-05-21] MEDS: Losartan 50mg tab ORAL SCH ×3 (09:00→18:00)
--- NOTE | 2019-05-21 09:15 | NUR ---
TRANSFER UPDATE CALLED [facility] ~ ONLY ABLE TO LEAVE A MESSAGE D/T HIGH VOLUME OF CALLS FAXED ALL PROGRESS NOTES TO [facility] T: [phone] F: [phone]
[2019-05-21] MEDS: Pantoprazole Inj IVP SCH (09:27)
--- NOTE | 2019-05-21 10:15 | NUR ---
NURSE NOTES: Spoke to regarding Cozaar. Per Dr. Horne: Hold Cozaar for now. Order noted and carried out.
--- NOTE | 2019-05-21 11:07 | Cardiology Report ---
APPROVED REPORT EKG Measurement Heart [id number] Sinus bradycardia Low voltage QRS Incomplete right bundle branch block Borderline ECG
--- NOTE | 2019-05-21 11:24 | Pre-Procedure Note/Attestation ---
Pre-Procedure Note/Attestation Complete Prior to Procedure Planned Procedure: not applicable Procedure Narrative: diagnostic laparoscopy, possible exploratory laparostomy, possible bowel resection, possible ostomy Indications for Procedure Pre-Operative Diagnosis: bowel obstruction Attestation I attest that I discussed the nature of the procedure; its benefits; risks and complications; and alternatives (and the risks and benefits of such alternatives ), prior to the procedure, with the patient (or the patient's legal medical sales representative). I attest that, if there was a reasonable possibility of needing a blood transfusion, the patient (or the patient's legal medical sales representative) was given the [facility] standardized written summary, pursuant to the [place] Blood Safety Act ([place] Health and Safety Code # 1645, as amended). I attest that I re-evaluated the patient just prior to the surgery and that there has been no change in the patient's H&P, except as documented below: Hernesto Horne May 21, 2019 11:24
--- NOTE | 2019-05-21 11:35 | NUR ---
NURSE NOTES: Patient off unit for surgery. Patient signed consent. IV patent.
--- NOTE | 2019-05-21 11:48 | Infectious Diseases Prog Note ---
Assessment/Plan Assessment/Plan A) 1) small bowel obstruction 2) possible sepsis, leukocytosis 3) allergies - nkda P) 1) zoysn 2) for surgery today 3) d/w surgery 4) monitor labs 5) thank you Subjective Constitutional: Denies: fever HEENT: Denies: congestion Respiratory: Denies: shortness of breath Gastrointestinal/Abdominal: Denies: nausea, vomiting Genitourinary: Denies: dysuria Neurologic: Denies: headache Allergies: Coded Allergies: No Known Allergies (Unverified , 10/07/12) Objective Vital Signs Last 24 Hour Vital Signs Date Time Temp Pulse Resp B/P (MAP) Pulse Ox O2 Delivery O2 Flow Rate FiO2 05/21/19 09:00 114/83 05/21/19 09:00 Room Air 05/21/19 08:00 97.2 87 19 114/83 (93) 97 05/21/19 04:00 98.4 94 17 125/83 (97) 97 05/21/19 00:00 98.3 98 18 133/74 (93) 99 05/20/19 21:00 Room Air 05/20/19 20:00 98.5 101 19 135/85 (102) 99 05/20/19 17:00 150/100 05/20/19 16:00 98.1 72 16 150/99 (116) 98 Height (Feet): 6 Height (Inches): 1.00 Weight (Pounds): 199 General Appearance: no acute distress HEENT: normocephalic, atraumatic, anicteric, mucous membranes moist Respiratory/Chest: lungs clear, normal breath sounds, no respiratory distress Cardiovascular: normal rate, regular rhythm Abdomen: soft, non tender, no organomegaly, hypoactive bowel sounds Microbiology Date/Time Source Procedure Growth Status 05/20/19 17:56 Urine,Clean Catch Urine Culture - Preliminary NO GROWTH Resulted Laboratory Tests Test 05/20/19 17:56 05/21/19 05:20 Urine Color Yellow Urine Appearance Clear Urine pH 6 (4.5-8.0) Urine Specific [place] 1.025 (1.005-1.035) Urine Protein 3+ (NEGATIVE) H Urine Glucose (UA) 1+ (NEGATIVE) H Urine Ketones 1+ (NEGATIVE) H Urine Blood 3+ (NEGATIVE) H Urine Nitrite Negative (NEGATIVE) Urine Bilirubin Negative (NEGATIVE) Urine Urobilinogen Normal MG/DL (0.0-1.0) Urine Leukocyte Esterase 1+ (NEGATIVE) H Urine RBC 5-10 /HPF (0 - 0) H Urine WBC 2-4 /HPF (0 - 0) Urine Squamous Epithelial Cells None /LPF (NONE/OCC) Urine Bacteria Moderate /HPF (NONE) H White Blood Count 19.0 K/UL (4.8-10.8) H Red Blood Count 4.62 M/UL (4.70-6.10) L Hemoglobin 15.6 G/DL (14.2-18.0) Hematocrit 46.7 % (42.0-52.0) Mean Corpuscular Volume 101 FL (80-99) H Mean Corpuscular Hemoglobin 33.7 PG (27.0-31.0) H Mean Corpuscular Hemoglobin Concent 33.4 G/DL (32.0-36.0) Red Cell Distribution Width 12.5 % (11.6-14.8) Platelet Count 286 K/UL (150-450) Mean Platelet Volume 7.3 FL (6.5-10.1) Neutrophils (%) (Auto) % (45.0-75.0) Lymphocytes (%) (Auto) % (20.0-45.0) Monocytes (%) (Auto) % (1.0-10.0) Eosinophils (%) (Auto) % (0.0-3.0) Basophils (%) (Auto) % (0.0-2.0) Differential Total Cells Counted 100 Neutrophils % (Manual) 90 % (45-75) H Lymphocytes % (Manual) 9 % (20-45) L Monocytes % (Manual) 1 % (1-10) Eosinophils % (Manual) 0 % (0-3) Basophils % (Manual) 0 % (0-2) Band Neutrophils 0 % (0-8) Platelet Estimate Adequate Platelet Morphology Normal Macrocytosis 1+ Sodium Level 144 MMOL/L (136-145) Potassium Level 4.6 MMOL/L (3.5-5.1) Chloride Level 104 MMOL/L (98-107) Carbon Dioxide Level 35 MMOL/L (21-32) H Anion Gap 5 mmol/L (5-15) Blood Urea Nitrogen 22 mg/dL (7-18) H Creatinine 1.5 MG/DL (0.55-1.30) H Estimat Glomerular Filtration Rate mL/min (>60) Glucose Level 147 MG/DL (74-106) H Calcium Level 11.1 MG/DL (8.5-10.1) H Total Bilirubin 1.0 MG/DL (0.2-1.0) Aspartate Amino Transf (AST/SGOT) 27 U/L (15-37) Alanine Aminotransferase (ALT/SGPT) 28 U/L (12-78) Alkaline Phosphatase 58 U/L (46-116) Total Protein 8.1 G/DL (6.4-8.2) Albumin 3.6 G/DL (3.4-5.0) Globulin 4.5 g/dL Albumin/Globulin Ratio 0.8 (1.0-2.7) L Current Medications Medications (Trade) Dose Ordered Sig/Pavan Route PRN Reason Start Time Stop Time Status Last Admin Dose Admin Clonidine HCl (Catapres Tab) 0.1 mg Q4H PRN ORAL SBP> 160 mm Hg 05/19/19 21:30 06/18/19 21:29 Dextrose/Sodium Chloride 1,000 ml @ 75 mls/hr [id number] IV 05/19/19 08:45 06/18/19 08:44 05/20/19 16:00 Losartan Potassium (Cozaar) 50 mg BID ORAL 05/20/19 09:00 06/18/19 12:59 05/20/19 17:00 Morphine Sulfate (Morphine Sulfate) 3 mg Q3H PRN IVP Moderate Pain (Pain Scale 4-6) 05/19/19 08:45 05/26/19 08:44 05/21/19 05:44 Morphine Sulfate (Morphine Sulfate) 5 mg Q3H PRN IVP Severe Pain (Pain Scale 7-10) 05/19/19 08:45 05/26/19 08:44 Ondansetron HCl (Zofran) 4 mg Q4H PRN IVP Nausea & Vomiting 05/19/19 21:45 06/18/19 21:44 05/20/19 13:50 Pantoprazole (Protonix) 40 mg DAILY IVP 05/19/19 12:15 06/18/19 12:14 05/21/19 09:27 Piperacillin Sod/ Tazobactam Sod 4.5 gm/Sodium Chloride 110 ml @ 27.5 mls/hr EVERY 8 HOURS IVPB 05/20/19 22:00 05/25/19 21:59 05/21/19 05:52 Sodium Phosphate (Fleet's Sodium Phosl Enema) 133 ml DAILYPRN PRN RECTAL Constipation 05/19/19 12:45 06/18/19 12:44 05/19/19 13:47 Dmitriy Meneses MD May 21, 2019 11:48
[2019-05-21] MEDS ORDERED: Zemuron 50mg/5ml Inj IV ONE (11:49)
[2019-05-21] MEDS ORDERED: Succinylcholine 20mg/ml 10ml vial ONE (11:50)
[2019-05-21] MEDS ORDERED: fentaNYL 100 mcg/2 mL IV ONE (11:50)
[2019-05-21] MEDS ORDERED: Propofol 200mg/20ml IV ONE (11:58)
[2019-05-21] MEDS ORDERED: Lidocaine 1% MPF 10mg/ml 5ml ONE (11:58)
[2019-05-21] MEDS ORDERED: Sterile Water Irrig 1000ml IRRIG ONE (12:00)
[2019-05-21] MEDS ORDERED: NS Irrig 1000ml ONE (12:00)
--- NOTE | 2019-05-21 12:10 | NUR ---
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 98.3 HR 98 RR 18 B/P 133/74 RA SAT 99% WBC 19.0 RBC 4.62 MCV 101 MCH 33.7 CARBON DIOXIDE 35 BUN 22 CREATININE 1.5 GLUCOSE 147 CALCIUM 11.1 IS: PROTONIX IVP ZOSYN 4.5GM IVP D5 1/2NS IV ZOFRAN IVP MORPHINE IVP MEDSURG STATUS DCP: AWAITING CALLBACK FROM [facility] FOR POSSIBLE TRANSFER
--- NOTE | 2019-05-21 12:53 | Anethesia Preoperative Eval ---
Anesthesia Pre-op PMH/ROS General Date of Evaluation: May 21, 2019 Time of Evaluation: 12:06 Anesthesiologist: Michael ASA Score: ASA 2 Mallampati Score Class I : Soft palate, uvula, fauces, pillars visible Class II: Soft palate, uvula, fauces visible Class III: Soft palate, base of uvula visible Class IV: Only hard plate visible Mallampati Classification: Class II Surgeon: Nkechi Diagnosis: Bowel obstruction Surgical Procedure: Laparoscopy poss laparotomy Anesthesia History: none Family History: no anesthesia problems Allergies: Coded Allergies: No Known Allergies (Unverified , 10/07/12) Medications: see eMAR Patient NPO?: Yes NPO Date: May 21, 2019 NPO Time: 0000 Past Medical History Cardiovascular: Reports: HTN, arrhythmia - A fib. Pulmonary: Reports: MADIE - on CPAP; Denies: asthma, COPD, other Gastrointestinal/Genitourinary: Reports: GERD; Denies: CRI, ESRD, other Neurologic/Psychiatric: Denies: dementia, CVA, depression/anxiety, TIA, other Endocrine: Denies: DM, hypothyroidism, steroids, other HEENT: Denies: cataract (L), cataract (R), glaucoma, ALGAACIQ (L), ALGAACIQ (R), other Hematology/Immune: Denies: anemia, DVT, bleeding disorder, other Musculoskeletal/Integumentary: Denies: OA, RA, DJD, DDD, edema, other PMH Narrative: as above PSxH Narrative: Hernia repair Anesthesia Pre-op Phys. Exam Physician Exam Last Vital Signs Date Time Temp Pulse Resp B/P (MAP) Pulse Ox O2 Delivery O2 Flow Rate FiO2 05/21/19 09:00 114/83 05/21/19 09:00 Room Air 05/21/19 08:00 97.2 87 19 97 05/19/19 09:00 2.0 Constitutional: NAD Neurologic: CN 2-12 intact Cardiovascular: RRR, other - IIR Respiratory: CTA Gastrointestinal: other - some tederness n palpation Airway Exam Mallampati Score: Class II MO: full Neck: flexible ROM: limited Teeth: intact Dentures: no upper, no lower Anesthesia Pre-op A/P Labs Hematology Test 05/21/19 05:20 White Blood Count 19.0 K/UL (4.8-10.8) H Red Blood Count 4.62 M/UL (4.70-6.10) L Hemoglobin 15.6 G/DL (14.2-18.0) Hematocrit 46.7 % (42.0-52.0) Mean Corpuscular Volume 101 FL (80-99) H Mean Corpuscular Hemoglobin 33.7 PG (27.0-31.0) H Mean Corpuscular Hemoglobin Concent 33.4 G/DL (32.0-36.0) Red Cell Distribution Width 12.5 % (11.6-14.8) Platelet Count 286 K/UL (150-450) Mean Platelet Volume 7.3 FL (6.5-10.1) Neutrophils (%) (Auto) % (45.0-75.0) Lymphocytes (%) (Auto) % (20.0-45.0) Monocytes (%) (Auto) % (1.0-10.0) Eosinophils (%) (Auto) % (0.0-3.0) Basophils (%) (Auto) % (0.0-2.0) Differential Total Cells Counted 100 Neutrophils % (Manual) 90 % (45-75) H Lymphocytes % (Manual) 9 % (20-45) L Monocytes % (Manual) 1 % (1-10) Eosinophils % (Manual) 0 % (0-3) Basophils % (Manual) 0 % (0-2) Band Neutrophils 0 % (0-8) Platelet Estimate Adequate Platelet Morphology Normal Macrocytosis 1+ Chemistry Test 05/21/19 05:20 Sodium Level 144 MMOL/L (136-145) Potassium Level 4.6 MMOL/L (3.5-5.1) Chloride Level 104 MMOL/L (98-107) Carbon Dioxide Level 35 MMOL/L (21-32) H Anion Gap 5 mmol/L (5-15) Blood Urea Nitrogen 22 mg/dL (7-18) H Creatinine 1.5 MG/DL (0.55-1.30) H Estimat Glomerular Filtration Rate mL/min (>60) Glucose Level 147 MG/DL (74-106) H Calcium Level 11.1 MG/DL (8.5-10.1) H Total Bilirubin 1.0 MG/DL (0.2-1.0) Aspartate Amino Transf (AST/SGOT) 27 U/L (15-37) Alanine Aminotransferase (ALT/SGPT) 28 U/L (12-78) Alkaline Phosphatase 58 U/L (46-116) Total Protein 8.1 G/DL (6.4-8.2) Albumin 3.6 G/DL (3.4-5.0) Globulin 4.5 g/dL Albumin/Globulin Ratio 0.8 (1.0-2.7) L Risk Assessment & Plan Assessment: ASA 2 Plan: GA with ETT Status Change Before Surgery: No Pre-Antibiotics Drug: as scheduled Roberto Rodriguez MD May 21, 2019 12:53
[2019-05-21] MEDS ORDERED: Morphine Sulfate 10mg/ml Inj ONE (12:58)
[2019-05-21] MEDS ORDERED: Glycopyrrolate 0.2mg/ml 1ml Vial ONE (12:59)
[2019-05-21] MEDS ORDERED: Sodium Chloride 10ml vial INJ ONE (12:59)
[2019-05-21] MEDS ORDERED: Hydromorphone 0.5mg/0.5ml inj IVP PRN (13:00)
[2019-05-21] MEDS ORDERED: DiphenhydrAMINE 50mg/ml Inj IVP PRN ×2 (13:00→16:00)
--- NOTE | 2019-05-21 14:53 | Immediate Post-Op Evaluation ---
Immediate Post-Op Evalulation Immediate Post-Op Evalulation Procedure: Diagnostic laparoscopy, lysis of adhesions partial bowel resection Date of Evaluation: May 21, 2019 Time of Evaluation: 14:52 IV Fluids: 1300 Blood Products: none Estimated Blood Loss: min Urinary Output: 100 Blood Pressure Systolic: 133 Blood Pressure Diastolic: 72 Pulse Rate: 64 Respiratory Rate: 20 O2 Sat by Pulse Oximetry: 98 Temperature (Fahrenheit): 97.6 Pain Score (1-10): 1 Nausea: No Vomiting: No Complications none Patient Status: reacts, patent, extubated, none Hydration Status: adequate Roberto Rodriguez MD May 21, 2019 14:53
--- NOTE | 2019-05-21 15:49 | General Progress Note ---
Assessment/Plan Problem List: (1) Small bowel obstruction ICD Codes: K56.609 - Unspecified intestinal obstruction, unspecified as to partial versus complete obstruction SNOMED: 523168996 (2) HTN (hypertension) Assessment & Plan: ok for now ICD Codes: I10 - Essential (primary) hypertension SNOMED: 26093415 (3) Afib ICD Codes: I48.91 - Unspecified atrial fibrillation SNOMED: 40953452 (4) Leukocytosis Assessment & Plan: worse ICD Codes: D72.829 - Elevated white blood cell count, unspecified SNOMED: 092352193, 783226226 Qualifiers: Qualified Codes: D72.828 - Other elevated white blood cell count Assessment/Plan: IVF NPO abxs Discussed with partner await X ray studies Discussed with Dr Horne allow higher BP Subjective Allergies: Coded Allergies: No Known Allergies (Unverified , 10/07/12) Subjective all noted Objective Last 24 Hour Vital Signs Date Time Temp Pulse Resp B/P (MAP) Pulse Ox O2 Delivery O2 Flow Rate FiO2 05/21/19 15:30 63 15 117/66 100 Nasal Cannula 3 05/21/19 15:20 66 16 122/63 100 Nasal Cannula 3 05/21/19 15:10 62 15 128/68 100 Simple Mask 6 05/21/19 15:00 63 17 133/73 100 Simple Mask 6 05/21/19 14:53 64 20 98 05/21/19 14:50 98.2 64 20 121/60 100 Simple Mask 6 05/21/19 09:00 114/83 05/21/19 09:00 Room Air 05/21/19 08:00 97.2 87 19 114/83 (93) 97 05/21/19 04:00 98.4 94 17 125/83 (97) 97 05/21/19 00:00 98.3 98 18 133/74 (93) 99 05/20/19 21:00 Room Air 05/20/19 20:00 98.5 101 19 135/85 (102) 99 05/20/19 17:00 150/100 05/20/19 16:00 98.1 72 16 150/99 (116) 98 Intake and Output 05/20/19 05/21/19 18:59 06:59 Intake Total 600 ml 825 ml Output Total 1200 ml 2200 ml Balance -600 ml -1375 ml Intake IV Total 600 ml 825 ml Output Urine Total 500 ml Gastric Drainage Total 800 ml 1700 ml Emesis 400 ml # Voids 1 Laboratory Tests 05/20/19 17:56: Urine Color Yellow, Urine Appearance Clear, Urine pH 6, Urine Specific [place] 1.025, Urine Protein 3+H, Urine Glucose (UA) 1+H, Urine Ketones 1+H, Urine Blood 3+H, Urine Nitrite Negative, Urine Bilirubin Negative, Urine Urobilinogen Normal, Urine Leukocyte Esterase 1+H, Urine RBC 5-10H, Urine WBC 2-4, Urine Squamous Epithelial Cells None, Urine Bacteria ModerateH 05/21/19 05:20: White Blood Count 19.0H, Red Blood Count 4.62L, Hemoglobin 15.6, Hematocrit 46.7 , Mean Corpuscular Volume 101H, Mean Corpuscular Hemoglobin 33.7H, Mean Corpuscular Hemoglobin Concent 33.4, Red Cell Distribution Width 12.5, Platelet Count 286, Mean Platelet Volume 7.3, Neutrophils (%) (Auto) , Lymphocytes (%) ( Auto) , Monocytes (%) (Auto) , Eosinophils (%) (Auto) , Basophils (%) (Auto) , Differential Total Cells Counted 100, Neutrophils % (Manual) 90H, Lymphocytes % (Manual) 9L, Monocytes % (Manual) 1, Eosinophils % (Manual) 0, Basophils % ( Manual) 0, Band Neutrophils 0, Platelet Estimate Adequate, Platelet Morphology Normal, Macrocytosis 1+, Sodium Level 144, Potassium Level 4.6, Chloride Level 104, Carbon Dioxide Level 35H, Anion Gap 5, Blood Urea Nitrogen 22H, Creatinine 1.5H, Estimat Glomerular Filtration Rate , Glucose Level 147H, Calcium Level 11.1H, Total Bilirubin 1.0, Aspartate Amino Transf (AST/SGOT) 27, Alanine Aminotransferase (ALT/SGPT) 28, Alkaline Phosphatase 58, Total Protein 8.1, Albumin 3.6, Globulin 4.5, Albumin/Globulin Ratio 0.8L Height (Feet): 6 Height (Inches): 1.00 Weight (Pounds): 199 Cardiovascular: normal rate Respiratory/Chest: lungs clear Dandy Lara MD May 21, 2019 15:48
--- NOTE | 2019-05-21 15:57 | Brief Operative Note ---
Immediate Post Operative Note Operative Note Pre-op Diagnosis: bowel obstruction Procedure: diagnostic laparoscopy laparoscopic reduction of incarcerated mesenteric hernia lysis of adhesions small bowel resection Surgeon: smitha Anesthesiologist: trey Anesthesia: general, local Specimen: yes Complications: none Condition: stable Fluids: see records Estimated Blood Loss: minimal Drains: none Implant(s) used?: No Hernesto Horne May 21, 2019 15:57
[2019-05-21] MEDS ORDERED: Metoclopramide 10mg/2ml Inj IVP PRN (16:00)
[2019-05-21] MEDS ORDERED: Morphine Sulfate 2mg/ml Inj(IV/IM USE ONLY) IVP PRN (16:00)
[2019-05-21] MEDS ORDERED: Morphine Sulfate 4mg/ml Inj (IV USE ONLY) IVP PRN (16:00)
--- NOTE | 2019-05-21 16:31 | Cardiology Progress Note ---
Assessment/Plan Assessment/Plan htn sbo internl hernia paf hs gerd rose marie [id number] Objective Last 24 Hour Vital Signs Date Time Temp Pulse Resp B/P (MAP) Pulse Ox O2 Delivery O2 Flow Rate FiO2 05/21/19 16:00 97.8 67 17 115/61 100 Nasal Cannula 3 05/21/19 15:45 65 18 122/69 100 Nasal Cannula 3 05/21/19 15:30 63 15 117/66 100 Nasal Cannula 3 05/21/19 15:20 66 16 122/63 100 Nasal Cannula 3 05/21/19 15:10 62 15 128/68 100 Simple Mask 6 05/21/19 15:00 63 17 133/73 100 Simple Mask 6 05/21/19 14:53 64 20 98 05/21/19 14:50 98.2 64 20 121/60 100 Simple Mask 6 05/21/19 09:00 114/83 05/21/19 09:00 Room Air 05/21/19 08:00 97.2 87 19 114/83 (93) 97 05/21/19 04:00 98.4 94 17 125/83 (97) 97 05/21/19 00:00 98.3 98 18 133/74 (93) 99 05/20/19 21:00 Room Air 05/20/19 20:00 98.5 101 19 135/85 (102) 99 05/20/19 17:00 150/100 Intake and Output 05/20/19 05/21/19 19:00 07:00 Intake Total 600 ml 750 ml Output Total 1200 ml 2200 ml Balance -600 ml -1450 ml Intake IV Total 600 ml 750 ml Output Urine Total 500 ml Gastric Drainage Total 800 ml 1700 ml Emesis 400 ml # Voids 1 Laboratory Tests Test 05/20/19 17:56 05/21/19 05:20 Urine Color Yellow Urine Appearance Clear Urine pH 6 (4.5-8.0) Urine Specific [place] 1.025 (1.005-1.035) Urine Protein 3+ (NEGATIVE) H Urine Glucose (UA) 1+ (NEGATIVE) H Urine Ketones 1+ (NEGATIVE) H Urine Blood 3+ (NEGATIVE) H Urine Nitrite Negative (NEGATIVE) Urine Bilirubin Negative (NEGATIVE) Urine Urobilinogen Normal MG/DL (0.0-1.0) Urine Leukocyte Esterase 1+ (NEGATIVE) H Urine RBC 5-10 /HPF (0 - 0) H Urine WBC 2-4 /HPF (0 - 0) Urine Squamous Epithelial Cells None /LPF (NONE/OCC) Urine Bacteria Moderate /HPF (NONE) H White Blood Count 19.0 K/UL (4.8-10.8) H Red Blood Count 4.62 M/UL (4.70-6.10) L Hemoglobin 15.6 G/DL (14.2-18.0) Hematocrit 46.7 % (42.0-52.0) Mean Corpuscular Volume 101 FL (80-99) H Mean Corpuscular Hemoglobin 33.7 PG (27.0-31.0) H Mean Corpuscular Hemoglobin Concent 33.4 G/DL (32.0-36.0) Red Cell Distribution Width 12.5 % (11.6-14.8) Platelet Count 286 K/UL (150-450) Mean Platelet Volume 7.3 FL (6.5-10.1) Neutrophils (%) (Auto) % (45.0-75.0) Lymphocytes (%) (Auto) % (20.0-45.0) Monocytes (%) (Auto) % (1.0-10.0) Eosinophils (%) (Auto) % (0.0-3.0) Basophils (%) (Auto) % (0.0-2.0) Differential Total Cells Counted 100 Neutrophils % (Manual) 90 % (45-75) H Lymphocytes % (Manual) 9 % (20-45) L Monocytes % (Manual) 1 % (1-10) Eosinophils % (Manual) 0 % (0-3) Basophils % (Manual) 0 % (0-2) Band Neutrophils 0 % (0-8) Platelet Estimate Adequate Platelet Morphology Normal Macrocytosis 1+ Sodium Level 144 MMOL/L (136-145) Potassium Level 4.6 MMOL/L (3.5-5.1) Chloride Level 104 MMOL/L (98-107) Carbon Dioxide Level 35 MMOL/L (21-32) H Anion Gap 5 mmol/L (5-15) Blood Urea Nitrogen 22 mg/dL (7-18) H Creatinine 1.5 MG/DL (0.55-1.30) H Estimat Glomerular Filtration Rate mL/min (>60) Glucose Level 147 MG/DL (74-106) H Calcium Level 11.1 MG/DL (8.5-10.1) H Total Bilirubin 1.0 MG/DL (0.2-1.0) Aspartate Amino Transf (AST/SGOT) 27 U/L (15-37) Alanine Aminotransferase (ALT/SGPT) 28 U/L (12-78) Alkaline Phosphatase 58 U/L (46-116) Total Protein 8.1 G/DL (6.4-8.2) Albumin 3.6 G/DL (3.4-5.0) Globulin 4.5 g/dL Albumin/Globulin Ratio 0.8 (1.0-2.7) L Microbiology Date/Time Source Procedure Growth Status 05/20/19 17:56 Urine,Clean Catch Urine Culture - Preliminary NO GROWTH Resulted Cedric Campuzano MD May 21, 2019 16:31
[2019-05-21] MEDS: D5 1/2NS 1,000 ML IV SCH ×2 (16:39→22:10)
--- NOTE | 2019-05-21 16:50 | NUR ---
NURSE NOTES: Spoke to regarding Cozaar. Per : hold Cozaar for now. Order noted and carried out.
--- NOTE | 2019-05-21 19:30 | NUR ---
HAND-OFF: Report given to Celestine RUBIN and Derik RUBIN. Patient in stable condition.
--- NOTE | 2019-05-21 19:58 | General Progress Note ---
Assessment/Plan Assessment/Plan: Assessment - SBO - s/p laparoscopy, lysis of adhesions, bowel resection Recommendations - post op diet per surgery - IVF - Follow exam Subjective Allergies: Coded Allergies: No Known Allergies (Unverified , 10/07/12) Subjective above noted persistent SBO on SBFT taken to OR apparently had mesenteric defect causing sbo a segment of bowel resected feels well now Objective Last 24 Hour Vital Signs Date Time Temp Pulse Resp B/P (MAP) Pulse Ox O2 Delivery O2 Flow Rate FiO2 05/21/19 16:00 97.8 67 17 115/61 100 Nasal Cannula 3 05/21/19 15:45 65 18 122/69 100 Nasal Cannula 3 05/21/19 15:30 63 15 117/66 100 Nasal Cannula 3 05/21/19 15:20 66 16 122/63 100 Nasal Cannula 3 05/21/19 15:10 62 15 128/68 100 Simple Mask 6 05/21/19 15:00 63 17 133/73 100 Simple Mask 6 05/21/19 14:53 64 20 98 05/21/19 14:50 98.2 64 20 121/60 100 Simple Mask 6 05/21/19 09:00 114/83 05/21/19 09:00 Room Air 05/21/19 08:00 97.2 87 19 114/83 (93) 97 05/21/19 04:00 98.4 94 17 125/83 (97) 97 05/21/19 00:00 98.3 98 18 133/74 (93) 99 05/20/19 21:00 Room Air 05/20/19 20:00 98.5 101 19 135/85 (102) 99 Intake and Output 05/20/19 05/21/19 19:00 07:00 Intake Total 600 ml 750 ml Output Total 1200 ml 2200 ml Balance -600 ml -1450 ml Intake IV Total 600 ml 750 ml Output Urine Total 500 ml Gastric Drainage Total 800 ml 1700 ml Emesis 400 ml # Voids 1 Laboratory Tests 05/21/19 05:20: White Blood Count 19.0H, Red Blood Count 4.62L, Hemoglobin 15.6, Hematocrit 46.7 , Mean Corpuscular Volume 101H, Mean Corpuscular Hemoglobin 33.7H, Mean Corpuscular Hemoglobin Concent 33.4, Red Cell Distribution Width 12.5, Platelet Count 286, Mean Platelet Volume 7.3, Neutrophils (%) (Auto) , Lymphocytes (%) ( Auto) , Monocytes (%) (Auto) , Eosinophils (%) (Auto) , Basophils (%) (Auto) , Differential Total Cells Counted 100, Neutrophils % (Manual) 90H, Lymphocytes % (Manual) 9L, Monocytes % (Manual) 1, Eosinophils % (Manual) 0, Basophils % ( Manual) 0, Band Neutrophils 0, Platelet Estimate Adequate, Platelet Morphology Normal, Macrocytosis 1+, Sodium Level 144, Potassium Level 4.6, Chloride Level 104, Carbon Dioxide Level 35H, Anion Gap 5, Blood Urea Nitrogen 22H, Creatinine 1.5H, Estimat Glomerular Filtration Rate , Glucose Level 147H, Calcium Level 11.1H, Total Bilirubin 1.0, Aspartate Amino Transf (AST/SGOT) 27, Alanine Aminotransferase (ALT/SGPT) 28, Alkaline Phosphatase 58, Total Protein 8.1, Albumin 3.6, Globulin 4.5, Albumin/Globulin Ratio 0.8L Height (Feet): 6 Height (Inches): 1.00 Weight (Pounds): 199 Objective WDWN NCAT supple CTA RRR abd soft wounds OK no edema Obi Hernandez MD May 21, 2019 19:58
--- NOTE | 2019-05-21 21:20 | NUR ---
NURSE NOTES: Received report from AM SCOTTIE Rich. Patient is sleeping in bed on Nasal Cannula 2L. No signs of SOB or distress. Abdominal dressing is c/d/i. Left hand IV is intact and running fluids D5 1/2NS at 100ml/hr. No c/o of nausea. Will continue to monitor
--- NOTE | 2019-05-22 03:15 | Operative Note - Dictated ---
DATE OF OPERATION: 05/21/2019 PREOPERATIVE DIAGNOSIS: Small-bowel obstruction. POSTOPERATIVE DIAGNOSES: 1. Small-bowel obstruction. 2. Congenital mesenteric defect. OPERATION PERFORMED: 1. Diagnostic laparoscopy. 2. Laparoscopic reduction of incarcerated mesenteric-defect hernia. 3. Laparoscopic lysis of adhesions. 4. Laparoscopic-assisted small-bowel resection. ATTENDING SURGEON: Hernesto Horne M.D. OPHTHALMIC TECHNICIAN: None. ANESTHESIOLOGIST: Roberto Rodriguez M.D. ANESTHESIA: General PLUMBING SERVICE TECHNICIAN. ESTIMATED BLOOD LOSS: Minimal. IV FLUIDS: Please see anesthesia records. COMPLICATIONS: None. DRAINS: None. COUNTS: Sponge and needle count correct x2. SPECIMEN: Small bowel. WOUND CLASSIFICATION: Class III. ANTIBIOTICS: The patient on scheduled IV Zosyn for acute inflammatory process. INDICATIONS FOR PROCEDURE: This 73-year-old female presented to [facility] complaining of worsening abdominal pain, nausea, and emesis. A CT scan was performed, which had concerns for small-bowel obstruction and a small-bowel followthrough was performed with concerns of a high-grade small-bowel obstruction. Surgery was indicated and recommended. Risks, benefits, alternatives were discussed with the patient in detail as well as the patient's , brother, and primary care physician. Everyone expressed understanding. All questions were answered and consent was signed by the patient. OPERATIVE NOTE: The patient was taken to the operating room and placed on the operating table in supine position with bilateral arms out. All bony prominences were well padded. SCDs were placed. Preoperative time-out was taken identifying the patient, procedure, operative site, and surgical staff. General anesthesia was induced. The patient was intubated. The abdomen was clipped, prepped, and draped in standard surgical fashion. Of note, Sam catheter was inserted using standard sterile technique. On evaluating the abdomen, the patient did have a small umbilical hernia. An umbilical incision was made in order to repair this at the completion of the procedure. The umbilical incision was carried down through the skin into the fascial defect. The fascial defect was widened with an #11 scalpel and a 12 mm Chapo trocar was inserted under direct visualization without complication. The abdomen was insufflated to 12-15 mmHg. The patient tolerated the insufflation well. Laparoscope was inserted and the abdomen was inspected. There was some sero-bloody fluid identified throughout the abdomen. The distended, dilated proximal bowel was noted as well as some collapsed distal bowel. The liver was identified and otherwise unremarkable. At this time, secondary trocars were placed under direct visualization beginning with a 5 mm left lower quadrant and a 5 mm suprapubic. Laparoscopic graspers were used in the right lower quadrant where the patient had a prior hernia surgery. There were some omental adhesions in the right lower quadrant. The area of obstruction was not noted around these incisions or from the patient's prior surgery, but given adhesions and their location and the tethering of the omentum made it difficult for the running of the small bowel, decision was made to perform laparoscopic lysis of the adhesions. These adhesions were taken down using laparoscopic Metzenbaum scissors with electrocautery as necessary. Once adhesions were completely removed, the omentum was placed in the left upper quadrant. The small bowel was then identified and the area of transition was easily identifiable in the left lower quadrant. The patient was placed in Trendelenburg position and as the bowel was mobilized, it was clearly evident that there was an obstructive process happening in the left lower abdomen. Upon further evaluation, it was noted that in the lateral aspect of the patient's redundant floppy sigmoid colon, there was an area at the most distal aspect of the pelvic brim where the bowel was incarcerated into the mesenteric peritoneal defect. The medial aspect of the large bowel mesentery was normal, but there was a mass-type structure identified as bulging around the mesentery of the sigmoid colon, which was incarcerated bowel coming in from the lateral aspect of the sigmoid colon at the level distal to the white line of Toldt and peritoneal reflection. The proximal distended, congested bowel was identified as well as the distal decompressed, noncongested bowel both entering into this mesenteric defect. Laparoscopic graspers were used and slowly we were able to reduce the bowel. Once the bowel was completely reduced, the defect was identified and there was approximately a 3-cm congenital defect noted in the inferomedial aspect of the peritoneal lining of the mesentery distal to the white line of Toldt about the pelvic brim above the sacral promontory. At this time, within the defect was identified to be the mesentery medially and the retroperitoneum laterally. Given the location right around the area of the iliac vessels, decision was made not to do any further dissection for concerns of injuring the ureter or the other surrounding structures. At this time, given the size of the defect and the amount of bowel that was in it, decision was made not to close the defect, but to rather open the defect wider. Laparoscopic Thunderbeat energy device was used and the defect was opened towards the white line of Toldt superiorly. Once the defect was opened, there was no longer a potential area of obstruction. The best to explain this was that there was a sphere with a hole in it and the hole was extended so that the sphere becomes almost as a cuff for lack of better words. This was how it was explained to the patient and the patient's family. Once this was complete, the mesentery was identified to be otherwise healthy. No bleeding was noted and the area of defect was otherwise stable and no potential for another recurrence could be noted at this time. Following this, the small bowel was run from the ligament of Treitz down to the ileocecal valve. The cecum was identified and no clear appendix was noted. Furthermore, the remaining portions of the sigmoid, ascending, descending, and transverse colon that could be identified were otherwise unremarkable. In the small bowel, there was an area of concern from where it was incarcerated. There was a potential 1 cm level that was no longer viable with congestion on the proximal end and forming congestion on the distal end. If left alone, there was potential for delayed perforation or even later in the future a stricture and given this, a decision was made to proceed with resection of this portion of small bowel. A proximal healthy and distal healthy portions of small bowel were identified and a total of likely a few-centimeter area of small bowel was to be resected. A window was made in the proximal and distal mesentery at level of dissection of mesentery and the Thunderbeat energy device was used to divide the mesentery in a V-shaped fashion around the area of proposed resection. Once this was complete, an enterotomy was made in the proximal and distal aspect in the healthy portion of the small bowel and a linear stapler was used and ngef-jw-uojj anastomosis was performed. Following this, a linear stapler was then used to close off the wbgo-kj-wgla anastomosis as well as resect the portion of the bowel. Once this was completed, there was an appropriate qrth-ro-elor anastomosis of the small bowel at a junction of healthy small bowel and a specimen that was the concerning portion of the small bowel. The umbilical trocar site had to be enlarged for the specimen to be removed. Specimen was sent to pathology for review. Following this, the abdomen was inspected, irrigated, and suctioned clean. The small bowel anastomosis was noted to be healthy, viable, and without any complication. The remainder of the small bowel, large colon, stomach, and organs that could be identified were otherwise healthy. At this time, we began the conclusion of our procedure. The abdomen was desufflated and the secondary trocar sites were removed under direct visualization. Local anesthetic was infiltrated to all port sites and skin incisions for the patient's comfort. A 0 PDS suture was used to reapproximate the umbilical trocar site and defect. The remaining skin incisions were cleansed and reapproximated using 4-0 Monocryl subcuticular interrupted sutures. Benzoin and Steri-Strips were applied. The patient tolerated the procedure well, was extubated, and taken to postanesthesia care unit in stable condition. Hernesto Horne M.D. DR: ULISES JOB#: [id number] CC:
--- NOTE | 2019-05-22 03:15 | Consultation ---
DATE OF CONSULTATION: 05/21/2019 CARDIOLOGY CONSULTATION CONSULTING PHYSICIAN: Cedric Campuzano M.D. REFERRING PHYSICIAN: Dandy Lara M.D. REASON FOR CONSULTATION: Atrial fibrillation. HISTORY OF PRESENT ILLNESS: This is a 73-year-old gentleman who is usually followed by . The patient has a history of paroxysmal episodes of atrial fibrillation, hypertension, sleep apnea, presented to the emergency room at [facility] because of abdominal pain, and was found to have small bowel obstruction, went to the operating room today, congenital defect was noted, partial small bowel and he is now being seen postoperatively in his room. The patient denies any chest pain or shortness of breath. No PND. No orthopnea. 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 Occasionally, he has some lightheadedness on standing with his partner. PAST MEDICAL HISTORY: Positive for history of hypertension, paroxysmal episodes of atrial fibrillation, gastroesophageal reflux disease, sleep apnea for which he is on CPAP. ALLERGIES: He has no known drug allergies. SOCIAL HISTORY: He used to smoke some 20 years ago, not anymore. Does drink alcoholic beverages a fair amount. No drug use. REVIEW OF SYSTEMS: GASTROINTESTINAL: He had nausea and vomiting at the time of admission, but that now seems to be stable. GENITOURINARY: No discomfort on urination. PULMONARY: Denies any coughing or wheezing. CONSTITUTIONAL: No fevers, chills, or night sweats. NEUROLOGICAL: Unremarkable. PHYSICAL EXAMINATION: GENERAL: Shows to be an elderly gentleman, in no respiratory distress. NECK: Supple. No jugular venous distention. LUNGS: Appear to be clear to auscultation anteriorly and to the sides. CARDIAC: Regular rate and rhythm. No heaves, thrills, gallops, or rubs are noted. ABDOMEN: Soft. There is mild tenderness to palpation. Hypoactive bowel sounds. EXTREMITIES: No edema. He has pneumatic compression stockings in place. NEUROLOGICAL: He is awake and responsive. LABORATORY AND DIAGNOSTIC DATA: Electrocardiogram performed on 05/19/2019 shows sinus bradycardia with leftward axis. Incomplete right bundle-branch conduction defect. No ST or T-wave abnormalities of any significant degree noted. His labs, white count of 19 down from 21, hemoglobin 15.6, and platelet count 286. Sodium 144, potassium 4.6, chloride 104, bicarb 35, BUN of 22, creatinine 1.5, and glucose of 147. Calcium is 11.1, albumin of 3.6. Coagulation studies, INR 0.2 and PTT of 23. Urinalysis, 1+ leukocyte esterase, 2 to 4 wbc's. Chest x-ray performed at the time of admission shows no acute cardiopulmonary processes, hypoventilatory changes being noted. CT of the abdomen and pelvis is interpreted as changes without abdominal aortic aneurysm, dilated fluid-filled small bowels, suspicious for obstructive process. ASSESSMENT AND PLAN: 1. Small bowel obstruction. 2. Internal hernia. 3. Paroxysmal episodes of atrial fibrillation. 4. Hypertension. 5. Obstructive sleep apnea. Dr. Lara, this patient was seen in cardiac consultation. The patient appears to be stable at the present time. He appears to be in sinus on examination. EKGs were previously on sinus. His telemetry strips from the operating room also showed sinus. He has been on Eliquis, which is on hold for two reasons, one because of his NPO status and second because of his risk of bleeding and that risk may be best treated without any anticoagulation at least for the first 48 hours or so postoperatively as he is not in atrial fibrillation, but we will discuss that again. His blood pressure appears to be relatively well controlled at the present time. He is not on any medication, we will keep NPO and he is on IV fluids. I will follow the patient along with you and provide further recommendations as become necessary. Cedric Campuzano M.D. DR: Caleb JOB#: [id number] CC:
[2019-05-22 04:00] VITALS: BP 125/66
[2019-05-22] MEDS: Morphine Sulfate 2mg/ml Inj(IV/IM USE ONLY) IVP PRN ×2 (05:49→21:18)
[2019-05-22] MEDS: Zosyn 4.5gm in NS 110ml q8h IVPB SCH ×3 (05:49→21:20)
[2019-05-22 06:21] LABS: BASOPHILS % (AUTO) 0.3 % (0.0-2.0); EOSINOPHILS % (AUTO) 0.7 % (0.0-3.0); HEMATOCRIT 37.8 % (42.0-52.0); HEMOGLOBIN 12.4 G/DL (14.2-18.0); MEAN CORPUSCULAR VOLUME 103 FL (80-99); MONOCYTES % (AUTO) 6.9 % (1.0-10.0); PLATELET COUNT 246 K/UL (150-450); RED BLOOD COUNT 3.66 M/UL (4.70-6.10); RED CELL DISTRIBUTION WIDTH 12.8 % (11.6-14.8); WHITE BLOOD COUNT 14.1 K/UL (4.8-10.8)
[2019-05-22 06:48] LABS: ALANINE AMINOTRANSFERASE 20 U/L (12-78); ALBUMIN 2.7 G/DL (3.4-5.0); ALBUMIN/GLOBULIN RATIO 0.7 (1.0-2.7); ALKALINE PHOSPHATASE 43 U/L (46-116); ANION GAP 4 mmol/L (5-15); ASPARTATE AMINO TRANSFERASE 19 U/L (15-37); BILIRUBIN,TOTAL 0.7 MG/DL (0.2-1.0); CALCIUM 9.1 MG/DL (8.5-10.1); CARBON DIOXIDE 32 MMOL/L (21-32); CHLORIDE 107 MMOL/L (98-107); CREATININE 1.5 MG/DL (0.55-1.30); POTASSIUM 3.9 MMOL/L (3.5-5.1); SODIUM 143 MMOL/L (136-145)
[2019-05-22 07:08] LABS: BLOOD UREA NITROGEN 31 mg/dL (7-18)
--- NOTE | 2019-05-22 07:26 | NUR ---
HAND-OFF: Report given to SCOTTIE Cahloun.
[2019-05-22 08:00] VITALS: BP 146/74
--- NOTE | 2019-05-22 08:22 | 48 Hour Post Anesthesia Eval ---
Post Anesthesia Evaluation Procedure: Diagnostic laparoscopy, lysis of adhesions partial bowel resection Date of Evaluation: May 22, 2019 Time of Evaluation: 08:21 Blood Pressure Systolic: 146 0: 76 Pulse Rate: 46 Respiratory Rate: 17 Temperature (Fahrenheit): 97.5 O2 Sat by Pulse Oximetry: 99 Airway: patent Nausea: No Vomiting: No Pain Intensity: 3 Hydration Status: adequate Cardiopulmonary Status: Stable Mental Status/LOC: patient returned to baseline Follow-up Care/Observations: 0 Post-Anesthesia Complications: 0 Follow-up care needed: N/A Lambert Leonardo MD May 22, 2019 08:22
[2019-05-22] MEDS: Pantoprazole Inj IVP SCH (08:38)
[2019-05-22] MEDS: Losartan 50mg tab ORAL SCH (09:00)
--- NOTE | 2019-05-22 10:02 | NUR ---
NURSE NOTES: jamie not given. med on hold. dr hunter called to clarify order. bienvenido ayala
--- NOTE | 2019-05-22 11:08 | NUR ---
NURSE NOTES: ambulated out in the [place] as tolerated . in no distress.
--- NOTE | 2019-05-22 11:55 | NUR ---
CASE MANAGEMENT: REVIEW 05/22/2019 SI:SBO. SEPSIS. T 97.5 HR 46 RR 18 B/P 146/74 SATS 99% ON 2L/NC WBC 14.1 BUN 31 CR 1.5 GLU 125 ALP 43 IS:IVF @ 100 mL/HR ZOSYN IV Q8H PROTONIX IV QD MED/SURG STATUS PLAN OF CARE: PT EVAL TRANSFER TO [facility]
[2019-05-22] MEDS: D5 1/2NS 1,000 ML IV SCH ×3 (11:57→23:46)
--- NOTE | 2019-05-22 11:59 | NUR ---
CASE MANAGEMENT:TRANSFER UPDATE F/U CALL PLACED TO KYLEE [phone] AWAITING FINANCIAL AND MEDICAL CLEARANCE Addendum: 05/23/19 at 1052 by Tish Locke CM PER DR ANTUNEZ TRANSFER LATE ENTRY
[2019-05-22 13:00] VITALS: BP 146/83
--- NOTE | 2019-05-22 13:04 | General Progress Note ---
Assessment/Plan Problem List: (1) Small bowel obstruction ICD Codes: K56.609 - Unspecified intestinal obstruction, unspecified as to partial versus complete obstruction SNOMED: 615778876 (2) HTN (hypertension) Assessment & Plan: ok for now ICD Codes: I10 - Essential (primary) hypertension SNOMED: 46650319 (3) Afib ICD Codes: I48.91 - Unspecified atrial fibrillation SNOMED: 74439740 (4) Leukocytosis Assessment & Plan: worse ICD Codes: D72.829 - Elevated white blood cell count, unspecified SNOMED: 504183360, 821674445 Qualifiers: Qualified Codes: D72.828 - Other elevated white blood cell count Assessment/Plan: IVF NPO abxs Discussed with pt and brother Discussed with Dr Horne watch BP Subjective Allergies: Coded Allergies: No Known Allergies (Unverified , 10/07/12) Subjective pt is not happy that he was not transferred feels ok Objective Last 24 Hour Vital Signs Date Time Temp Pulse Resp B/P (MAP) Pulse Ox O2 Delivery O2 Flow Rate FiO2 05/22/19 09:00 146/74 05/22/19 09:00 Nasal Cannula 2.0 05/22/19 08:22 46 17 99 05/22/19 08:00 97.5 46 18 146/74 (98) 99 05/22/19 04:00 97.8 49 16 125/66 (85) 100 05/21/19 21:10 99 Nasal Cannula 2.0 28 05/21/19 21:00 Nasal Cannula 2.0 05/21/19 19:00 97.8 57 18 103/57 (72) 95 05/21/19 18:00 97.9 70 19 103/53 (70) 96 05/21/19 17:00 98.0 68 18 100/53 (69) 95 05/21/19 16:30 98.1 60 18 99/57 (71) 96 05/21/19 16:00 97.8 76 17 108/60 (76) 96 05/21/19 16:00 97.8 67 17 115/61 100 Nasal Cannula 3 05/21/19 15:45 65 18 122/69 100 Nasal Cannula 3 05/21/19 15:30 63 15 117/66 100 Nasal Cannula 3 05/21/19 15:20 66 16 122/63 100 Nasal Cannula 3 05/21/19 15:10 62 15 128/68 100 Simple Mask 6 05/21/19 15:00 63 17 133/73 100 Simple Mask 6 05/21/19 14:53 64 20 98 05/21/19 14:50 98.2 64 20 121/60 100 Simple Mask 6 Intake and Output 05/21/19 05/22/19 19:00 07:00 Intake Total 200 ml 1300 ml Output Total 120 ml 425 ml Balance 80 ml 875 ml Intake IV Total 200 ml 1300 ml Output Urine Total 100 ml 425 ml Estimated Blood Loss 20 ml Laboratory Tests 05/22/19 05:30: White Blood Count 14.1H, Red Blood Count 3.66L, Hemoglobin 12.4L, Hematocrit 37.8L, Mean Corpuscular Volume 103H, Mean Corpuscular Hemoglobin 33.9H, Mean Corpuscular Hemoglobin Concent 32.9, Red Cell Distribution Width 12.8, Platelet Count 246, Mean Platelet Volume 7.1, Neutrophils (%) (Auto) 80.0H, Lymphocytes ( %) (Auto) 12.0L, Monocytes (%) (Auto) 6.9, Eosinophils (%) (Auto) 0.7, Basophils (%) (Auto) 0.3, Sodium Level 143, Potassium Level 3.9, Chloride Level 107, Carbon Dioxide Level 32, Anion Gap 4L, Blood Urea Nitrogen 31H, Creatinine 1.5H, Estimat Glomerular Filtration Rate , Glucose Level 125H, Calcium Level 9.1 , Total Bilirubin 0.7, Aspartate Amino Transf (AST/SGOT) 19, Alanine Aminotransferase (ALT/SGPT) 20, Alkaline Phosphatase 43L, Total Protein 6.4, Albumin 2.7L, Globulin 3.7, Albumin/Globulin Ratio 0.7L Height (Feet): 6 Height (Inches): 1.00 Weight (Pounds): 202 Cardiovascular: normal rate Respiratory/Chest: lungs clear Abdomen: soft Dandy Lara MD May 22, 2019 13:04
--- NOTE | 2019-05-22 13:35 | NUR ---
P.T Note: P.T evaluation completed. Pt is alert , O x 4 . Pt presented 2-3/10 pain on the abdomen limiting mobility however able to perform bed mobility and transfer mobility tasks independently. Pt ambulated more than 250 ft, no LOB , AD not needed. Pt educated on proper mobility technique by utilizing core muscle group to minimize pain symptoms during mobility. Pt also instructed on proper deep breathing technique and encouraged OOB activities VS bedrest unless otherwise ordered. Pt verbalized and demonstrated good understanding. Pt currently functioning safely and independently. No further P.T follow up needed. DC P.T services.
--- NOTE | 2019-05-22 13:39 | General Progress Note ---
Progress Note Progress Note doing well post op pain improved non/v/f/c comfortable ambulatory wounds c/d/i abd soft, nt, mild distention labsimproved -d/c lopez npo iv fluids Hernesto Horne May 22, 2019 13:39
--- NOTE | 2019-05-22 13:50 | Infectious Diseases Prog Note ---
Assessment/Plan Assessment/Plan ASSESSMENT AND PLAN: 1. SBO, sepsis, leukocytosis - s/p surgery - operative report noted - continue zosyn for now - clinically improved - monitor labs 2. The patient has a history of atrial fibrillation. I think it is intermittent. He has been on Eliquis in the past. 3. The patient has history of hypertension. Blood pressure treatment per Dr. Lara. 4. History of sleep apnea. He is on CPAP. 5. History of GERD. 6. No known drug allergies. 7. Social history is negative. 8. Family history is noncontributory. 9. MAR is noted. 10. Case was discussed with RN. 11. Case was discussed with the patient. 12. Case was discussed with Dr. Lara. 13. Continue treatment per primary consultants. Subjective Constitutional: Reports: fatigue; Denies: fever Respiratory: Denies: shortness of breath Cardiovascular: Denies: chest pain Gastrointestinal/Abdominal: Denies: nausea, vomiting Genitourinary: Denies: dysuria, hematuria Neurologic: Denies: headache Psychiatric: Denies: depression Skin: Denies: rash Hematologic: Denies: bleeding Musculoskeletal: Reports: pain - some post-operative abdominal discomfort Allergies: Coded Allergies: No Known Allergies (Unverified , 10/07/12) Objective Vital Signs Last 24 Hour Vital Signs Date Time Temp Pulse Resp B/P (MAP) Pulse Ox O2 Delivery O2 Flow Rate FiO2 05/22/19 09:00 146/74 05/22/19 09:00 Nasal Cannula 2.0 05/22/19 08:22 46 17 99 05/22/19 08:00 97.5 46 18 146/74 (98) 99 05/22/19 04:00 97.8 49 16 125/66 (85) 100 05/21/19 21:10 99 Nasal Cannula 2.0 28 05/21/19 21:00 Nasal Cannula 2.0 05/21/19 19:00 97.8 57 18 103/57 (72) 95 05/21/19 18:00 97.9 70 19 103/53 (70) 96 05/21/19 17:00 98.0 68 18 100/53 (69) 95 05/21/19 16:30 98.1 60 18 99/57 (71) 96 05/21/19 16:00 97.8 76 17 108/60 (76) 96 05/21/19 16:00 97.8 67 17 115/61 100 Nasal Cannula 3 05/21/19 15:45 65 18 122/69 100 Nasal Cannula 3 05/21/19 15:30 63 15 117/66 100 Nasal Cannula 3 05/21/19 15:20 66 16 122/63 100 Nasal Cannula 3 05/21/19 15:10 62 15 128/68 100 Simple Mask 6 05/21/19 15:00 63 17 133/73 100 Simple Mask 6 05/21/19 14:53 64 20 98 05/21/19 14:50 98.2 64 20 121/60 100 Simple Mask 6 Height (Feet): 6 Height (Inches): 1.00 Weight (Pounds): 202 General Appearance: no acute distress HEENT: normocephalic, atraumatic, anicteric, mucous membranes moist Respiratory/Chest: lungs clear, normal breath sounds, no respiratory distress, no accessory muscle use Cardiovascular: normal rate, regular rhythm, no gallop/murmur, no JVD Abdomen: normal bowel sounds, soft, non tender, no organomegaly, non distended , hypoactive bowel sounds, other - mild pain, no rebound Genitourinary: other - no lopez Extremities: no cyanosis Skin: no rash Neurologic/Psychiatric: fine wire drawer II-XII grossly normal, alert, oriented x 3, responsive Lymphatic: no neck adenopathy Musculoskeletal: no effusion Objective CT abdomen and pelvis: IMPRESSION: Atherosclerotic changes without AAA or dissection. Dilated fluid-filled small bowel suspicious for obstructive process with suspected distal transition in left lower quadrant. Trace free fluid with interloop/mesenteric edema. Recommend follow-up. Trace pericardial effusion and other findings, as above. Chest x-ray noted - nad, report noted Microbiology Date/Time Source Procedure Growth Status 05/20/19 17:56 Urine,Clean Catch Urine Culture - Preliminary NO GROWTH AFTER 24 HOURS Resulted Laboratory Tests Test 05/22/19 05:30 White Blood Count 14.1 K/UL (4.8-10.8) H Red Blood Count 3.66 M/UL (4.70-6.10) L Hemoglobin 12.4 G/DL (14.2-18.0) L Hematocrit 37.8 % (42.0-52.0) L Mean Corpuscular Volume 103 FL (80-99) H Mean Corpuscular Hemoglobin 33.9 PG (27.0-31.0) H Mean Corpuscular Hemoglobin Concent 32.9 G/DL (32.0-36.0) Red Cell Distribution Width 12.8 % (11.6-14.8) Platelet Count 246 K/UL (150-450) Mean Platelet Volume 7.1 FL (6.5-10.1) Neutrophils (%) (Auto) 80.0 % (45.0-75.0) H Lymphocytes (%) (Auto) 12.0 % (20.0-45.0) L Monocytes (%) (Auto) 6.9 % (1.0-10.0) Eosinophils (%) (Auto) 0.7 % (0.0-3.0) Basophils (%) (Auto) 0.3 % (0.0-2.0) Sodium Level 143 MMOL/L (136-145) Potassium Level 3.9 MMOL/L (3.5-5.1) Chloride Level 107 MMOL/L (98-107) Carbon Dioxide Level 32 MMOL/L (21-32) Anion Gap 4 mmol/L (5-15) L Blood Urea Nitrogen 31 mg/dL (7-18) H Creatinine 1.5 MG/DL (0.55-1.30) H Estimat Glomerular Filtration Rate mL/min (>60) Glucose Level 125 MG/DL (74-106) H Calcium Level 9.1 MG/DL (8.5-10.1) Total Bilirubin 0.7 MG/DL (0.2-1.0) Aspartate Amino Transf (AST/SGOT) 19 U/L (15-37) Alanine Aminotransferase (ALT/SGPT) 20 U/L (12-78) Alkaline Phosphatase 43 U/L (46-116) L Total Protein 6.4 G/DL (6.4-8.2) Albumin 2.7 G/DL (3.4-5.0) L Globulin 3.7 g/dL Albumin/Globulin Ratio 0.7 (1.0-2.7) L Current Medications Medications (Trade) Dose Ordered Sig/Pavan Route PRN Reason Start Time Stop Time Status Last Admin Dose Admin Clonidine HCl (Catapres Tab) 0.1 mg Q4H PRN ORAL SBP> 160 mm Hg 05/19/19 21:30 9/17/19 21:29 Dextrose/Sodium Chloride 1,000 ml @ 100 mls/hr Q10H IV 05/21/19 15:57 06/20/19 15:56 05/21/19 22:10 Diphenhydramine HCl (Benadryl) 12.5 mg Q6H PRN IVP Itching/Pruritis 05/21/19 16:00 06/20/19 15:59 Metoclopramide HCl (Reglan) 10 mg Q6H PRN IVP Nausea & Vomiting 05/21/19 16:00 06/20/19 15:59 Morphine Sulfate (Morphine Sulfate) 1 mg Q4H PRN IVP pain scale 1-3 05/21/19 16:00 05/28/19 15:59 Morphine Sulfate (Morphine Sulfate) 2 mg Q4H PRN IVP pain scale 4-6 05/21/19 16:00 05/28/19 15:59 05/22/19 05:49 Morphine Sulfate (Morphine Sulfate) 4 mg Q4H PRN IVP pain score 7-10 05/21/19 16:00 05/28/19 15:59 Ondansetron HCl (Zofran) 4 mg Q4H PRN IVP Nausea & Vomiting 05/19/19 21:45 06/18/19 21:44 05/20/19 13:50 Pantoprazole (Protonix) 40 mg DAILY IVP 05/19/19 12:15 06/18/19 12:14 05/22/19 08:38 Piperacillin Sod/ Tazobactam Sod 4.5 gm/Sodium Chloride 110 ml @ 27.5 mls/hr EVERY 8 HOURS IVPB 05/20/19 22:00 05/25/19 21:59 05/22/19 13:32 Dmitriy Meneses MD May 22, 2019 13:50
[2019-05-22 16:00] VITALS: BP 146/75
--- NOTE | 2019-05-22 16:10 | General Progress Note ---
Assessment/Plan Assessment/Plan: Assessment - SBO - s/p laparoscopy, lysis of adhesions, bowel resection Recommendations - post op diet per surgery - IVF - Follow exam Subjective Allergies: Coded Allergies: No Known Allergies (Unverified , 10/07/12) Subjective above noted POD #1 no flatus yet pain controlled Objective Last 24 Hour Vital Signs Date Time Temp Pulse Resp B/P (MAP) Pulse Ox O2 Delivery O2 Flow Rate FiO2 05/22/19 13:00 97.7 49 20 146/83 (104) 96 05/22/19 09:00 146/74 05/22/19 09:00 Nasal Cannula 2.0 05/22/19 08:22 46 17 99 05/22/19 08:00 97.5 46 18 146/74 (98) 99 05/22/19 04:00 97.8 49 16 125/66 (85) 100 05/21/19 21:10 99 Nasal Cannula 2.0 28 05/21/19 21:00 Nasal Cannula 2.0 05/21/19 19:00 97.8 57 18 103/57 (72) 95 05/21/19 18:00 97.9 70 19 103/53 (70) 96 05/21/19 17:00 98.0 68 18 100/53 (69) 95 05/21/19 16:30 98.1 60 18 99/57 (71) 96 Intake and Output 05/21/19 05/22/19 19:00 07:00 Intake Total 200 ml 1300 ml Output Total 120 ml 425 ml Balance 80 ml 875 ml Intake IV Total 200 ml 1300 ml Output Urine Total 100 ml 425 ml Estimated Blood Loss 20 ml Laboratory Tests 05/22/19 05:30: White Blood Count 14.1H, Red Blood Count 3.66L, Hemoglobin 12.4L, Hematocrit 37.8L, Mean Corpuscular Volume 103H, Mean Corpuscular Hemoglobin 33.9H, Mean Corpuscular Hemoglobin Concent 32.9, Red Cell Distribution Width 12.8, Platelet Count 246, Mean Platelet Volume 7.1, Neutrophils (%) (Auto) 80.0H, Lymphocytes ( %) (Auto) 12.0L, Monocytes (%) (Auto) 6.9, Eosinophils (%) (Auto) 0.7, Basophils (%) (Auto) 0.3, Sodium Level 143, Potassium Level 3.9, Chloride Level 107, Carbon Dioxide Level 32, Anion Gap 4L, Blood Urea Nitrogen 31H, Creatinine 1.5H, Estimat Glomerular Filtration Rate , Glucose Level 125H, Calcium Level 9.1 , Total Bilirubin 0.7, Aspartate Amino Transf (AST/SGOT) 19, Alanine Aminotransferase (ALT/SGPT) 20, Alkaline Phosphatase 43L, Total Protein 6.4, Albumin 2.7L, Globulin 3.7, Albumin/Globulin Ratio 0.7L Height (Feet): 6 Height (Inches): 1.00 Weight (Pounds): 202 Objective WDWN NCAT supple CTA RRR abd soft wounds OK no edema Obi Hernandez MD May 22, 2019 16:10
--- NOTE | 2019-05-22 19:00 | NUR ---
NURSE NOTES: CONDITION STABLE. IN NO DISTRESS.
--- NOTE | 2019-05-22 19:12 | Cardiology Progress Note ---
Assessment/Plan Assessment/Plan 1. Small bowel obstruction. 2. Internal hernia. 3. Paroxysmal episodes of atrial fibrillation. 4. Hypertension. 5. Obstructive sleep apnea. doign well remain npo restart feed when has falus no eliquis until after tolerates po remains in sinus Subjective Cardiovascular: Denies: chest pain, lightheadedness, palpitations Respiratory: Denies: shortness of breath Genitourinary: Denies: burning Objective Last 24 Hour Vital Signs Date Time Temp Pulse Resp B/P (MAP) Pulse Ox O2 Delivery O2 Flow Rate FiO2 05/22/19 16:00 98.9 47 18 146/75 (98) 98 05/22/19 13:00 97.7 49 20 146/83 (104) 96 05/22/19 09:00 146/74 05/22/19 09:00 Nasal Cannula 2.0 05/22/19 08:22 46 17 99 05/22/19 08:00 97.5 46 18 146/74 (98) 99 05/22/19 04:00 97.8 49 16 125/66 (85) 100 05/21/19 21:10 99 Nasal Cannula 2.0 28 05/21/19 21:00 Nasal Cannula 2.0 General Appearance: no apparent distress, alert Cardiovascular: normal rate Respiratory/Chest: lungs clear Abdomen: soft Extremities: no swelling Intake and Output 05/21/19 05/22/19 19:00 07:00 Intake Total 200 ml 1300 ml Output Total 120 ml 425 ml Balance 80 ml 875 ml Intake IV Total 200 ml 1300 ml Output Urine Total 100 ml 425 ml Estimated Blood Loss 20 ml Laboratory Tests Test 05/22/19 05:30 White Blood Count 14.1 K/UL (4.8-10.8) H Red Blood Count 3.66 M/UL (4.70-6.10) L Hemoglobin 12.4 G/DL (14.2-18.0) L Hematocrit 37.8 % (42.0-52.0) L Mean Corpuscular Volume 103 FL (80-99) H Mean Corpuscular Hemoglobin 33.9 PG (27.0-31.0) H Mean Corpuscular Hemoglobin Concent 32.9 G/DL (32.0-36.0) Red Cell Distribution Width 12.8 % (11.6-14.8) Platelet Count 246 K/UL (150-450) Mean Platelet Volume 7.1 FL (6.5-10.1) Neutrophils (%) (Auto) 80.0 % (45.0-75.0) H Lymphocytes (%) (Auto) 12.0 % (20.0-45.0) L Monocytes (%) (Auto) 6.9 % (1.0-10.0) Eosinophils (%) (Auto) 0.7 % (0.0-3.0) Basophils (%) (Auto) 0.3 % (0.0-2.0) Sodium Level 143 MMOL/L (136-145) Potassium Level 3.9 MMOL/L (3.5-5.1) Chloride Level 107 MMOL/L (98-107) Carbon Dioxide Level 32 MMOL/L (21-32) Anion Gap 4 mmol/L (5-15) L Blood Urea Nitrogen 31 mg/dL (7-18) H Creatinine 1.5 MG/DL (0.55-1.30) H Estimat Glomerular Filtration Rate mL/min (>60) Glucose Level 125 MG/DL (74-106) H Calcium Level 9.1 MG/DL (8.5-10.1) Total Bilirubin 0.7 MG/DL (0.2-1.0) Aspartate Amino Transf (AST/SGOT) 19 U/L (15-37) Alanine Aminotransferase (ALT/SGPT) 20 U/L (12-78) Alkaline Phosphatase 43 U/L (46-116) L Total Protein 6.4 G/DL (6.4-8.2) Albumin 2.7 G/DL (3.4-5.0) L Globulin 3.7 g/dL Albumin/Globulin Ratio 0.7 (1.0-2.7) L Microbiology Date/Time Source Procedure Growth Status 05/20/19 17:56 Urine,Clean Catch Urine Culture - Preliminary NO GROWTH AFTER 24 HOURS Resulted Cedric Campuzano MD May 22, 2019 19:12
--- NOTE | 2019-05-22 19:39 | NUR ---
HAND-OFF: Report given to Kevon ALCARAZ RN.
--- NOTE | 2019-05-22 19:45 | NUR ---
NURSE NOTES: Pt lying in bed w/bed in lowest position and call light within reach. Pt A&Ox4, VSS, and in no apparent distress at this time. IV site intact/asymptomatic w/IVF infusing; surgical lap dressings x 3 C/D/I; and hypoactive bowels auscultated on assessment. Pt seen ambulating around unit without incident. Will continue to monitor.
[2019-05-22 20:00] VITALS: BP 141/73
[2019-05-23] VITALS (7 sets, daily range): BP systolic 143–168; BP diastolic 68–84
[2019-05-23] MEDS: Morphine Sulfate 2mg/ml Inj(IV/IM USE ONLY) IVP PRN ×2 (02:41→21:30)
[2019-05-23] MEDS: Zosyn 4.5gm in NS 110ml q8h IVPB SCH ×3 (05:36→21:22)
[2019-05-23 06:38] LABS: BASOPHILS % (AUTO) 0.6 % (0.0-2.0); EOSINOPHILS % (AUTO) 4.5 % (0.0-3.0); HEMATOCRIT 33.3 % (42.0-52.0); LYMPHOCYTES % (AUTO) 20.5 % (20.0-45.0); MEAN CORPUSCULAR VOLUME 103 FL (80-99); MONOCYTES % (AUTO) 7.6 % (1.0-10.0); NEUTROPHILS % (AUTO) 66.8 % (45.0-75.0); PLATELET COUNT 228 K/UL (150-450); RED BLOOD COUNT 3.25 M/UL (4.70-6.10); RED CELL DISTRIBUTION WIDTH 12.6 % (11.6-14.8); WHITE BLOOD COUNT 8.3 K/UL (4.8-10.8)
[2019-05-23 06:48] LABS: ANION GAP 6 mmol/L (5-15); BLOOD UREA NITROGEN 27 mg/dL (7-18); CALCIUM 9.1 MG/DL (8.5-10.1); CARBON DIOXIDE 29 MMOL/L (21-32); CHLORIDE 109 MMOL/L (98-107); CREATININE 1.3 MG/DL (0.55-1.30); POTASSIUM 3.4 MMOL/L (3.5-5.1); SODIUM 144 MMOL/L (136-145)
--- NOTE | 2019-05-23 07:12 | NUR ---
HAND-OFF: Report given to Benton Rich RN.
--- NOTE | 2019-05-23 07:30 | NUR ---
NURSE NOTES: Patient lying in bed awake. No complain of pain or distress at this time. Skin intact and dry. Surgical dressing intact and dry. IV dressing intact and dry. Bed lowest position. Call light within reach. Will continue to monitor.
[2019-05-23] MEDS: Pantoprazole Inj IVP SCH (08:47)
[2019-05-23] MEDS: D5 1/2NS 1,000 ML IV SCH (08:48)
[2019-05-23] MEDS ORDERED: NS 275ml ONE (11:14)
[2019-05-23] MEDS ORDERED: D5 1/2NS 1000ml IV ONE (11:14)
[2019-05-23] MEDS ORDERED: D5 1/2NS w/KCl 20mEq 1,000 ML IV SCH (12:00)
--- NOTE | 2019-05-23 12:13 | General Progress Note ---
Assessment/Plan Problem List: (1) Small bowel obstruction ICD Codes: K56.609 - Unspecified intestinal obstruction, unspecified as to partial versus complete obstruction SNOMED: 279027284 (2) HTN (hypertension) Assessment & Plan: ok for now ICD Codes: I10 - Essential (primary) hypertension SNOMED: 33725998 (3) Afib ICD Codes: I48.91 - Unspecified atrial fibrillation SNOMED: 20067789 (4) Leukocytosis Assessment & Plan: worse ICD Codes: D72.829 - Elevated white blood cell count, unspecified SNOMED: 584788841, 594250972 Qualifiers: Qualified Codes: D72.828 - Other elevated white blood cell count (5) Bradycardia ICD Codes: R00.1 - Bradycardia, unspecified SNOMED: 04534644 (6) Hypokalemia ICD Codes: E87.6 - Hypokalemia SNOMED: 63550522 Assessment/Plan: Add KCL to IVF diet per Dr Coleen mena Discussed with pt Discussed with Dr Justen gongora BP Dc PRN clonidine Subjective Allergies: Coded Allergies: No Known Allergies (Unverified , 10/07/12) Subjective pt had BM Objective Last 24 Hour Vital Signs Date Time Temp Pulse Resp B/P (MAP) Pulse Ox O2 Delivery O2 Flow Rate FiO2 05/23/19 09:00 Room Air 05/23/19 08:00 97.2 40 21 158/75 (102) 97 05/23/19 07:34 96 Room Air 21 05/23/19 04:00 98.3 44 18 151/71 (97) 96 05/23/19 00:00 98.5 48 18 143/68 (93) 97 05/22/19 21:00 Room Air 05/22/19 20:02 98 Nasal Cannula 2.0 28 05/22/19 20:00 98.3 45 18 141/73 (95) 97 05/22/19 16:00 98.9 47 18 146/75 (98) 98 05/22/19 13:00 97.7 49 20 146/83 (104) 96 Intake and Output 05/22/19 05/23/19 18:59 06:59 Intake Total 960 ml 1310.0 ml Output Total 250 ml 500 ml Balance 710 ml 810.0 ml Intake IV Total 960 ml 1310.0 ml Output Urine Total 250 ml 500 ml # Voids 1 2 Laboratory Tests 05/23/19 05:30: White Blood Count 8.3, Red Blood Count 3.25L, Hemoglobin 11.0L, Hematocrit 33.3L , Mean Corpuscular Volume 103H, Mean Corpuscular Hemoglobin 33.9H, Mean Corpuscular Hemoglobin Concent 33.0, Red Cell Distribution Width 12.6, Platelet Count 228, Mean Platelet Volume 7.0, Neutrophils (%) (Auto) 66.8, Lymphocytes (% ) (Auto) 20.5, Monocytes (%) (Auto) 7.6, Eosinophils (%) (Auto) 4.5H, Basophils (%) (Auto) 0.6, Sodium Level 144, Potassium Level 3.4L, Chloride Level 109H, Carbon Dioxide Level 29, Anion Gap 6, Blood Urea Nitrogen 27H, Creatinine 1.3, Estimat Glomerular Filtration Rate , Glucose Level 124H, Calcium Level 9.1 Height (Feet): 6 Height (Inches): 1.00 Weight (Pounds): 202 Cardiovascular: normal rate Respiratory/Chest: lungs clear Abdomen: soft, distended Dandy Lara MD May 23, 2019 12:13
--- NOTE | 2019-05-23 13:46 | NUR ---
NURSE NOTES: Spoke to regarding blood pressure and new order received. Order read back and carried out.
[2019-05-23] MEDS ORDERED: Losartan 50mg tab ORAL SCH (15:00)
--- NOTE | 2019-05-23 17:19 | General Progress Note ---
Progress Note Progress Note doing well had BM and flatus today minimal pain labs improved start clears Hernesto Horne May 23, 2019 17:19
[2019-05-23] MEDS: D5 1/2NS w/KCl 20mEq 1,000 ML IV SCH (17:38)
--- NOTE | 2019-05-23 18:48 | Cardiology Progress Note ---
Assessment/Plan Assessment/Plan 1. Small bowel obstruction. 2. Internal hernia. 3. Paroxysmal episodes of atrial fibrillation. 4. Hypertension. 5. Obstructive sleep apnea. had bm on cozaar at home may restart old meds jef chronic per pt now on clears restart eliquis tomorrow Subjective Cardiovascular: Denies: chest pain, lightheadedness Respiratory: Denies: shortness of breath Gastrointestinal/Abdominal: Denies: abdominal pain Objective Last 24 Hour Vital Signs Date Time Temp Pulse Resp B/P (MAP) Pulse Ox O2 Delivery O2 Flow Rate FiO2 05/23/19 15:05 164/76 05/23/19 15:00 43 164/76 (105) 05/23/19 12:00 97.7 40 20 168/84 (112) 98 05/23/19 09:00 Room Air 05/23/19 08:00 97.2 40 21 158/75 (102) 97 05/23/19 07:34 96 Room Air 21 05/23/19 04:00 98.3 44 18 151/71 (97) 96 05/23/19 00:00 98.5 48 18 143/68 (93) 97 05/22/19 21:00 Room Air 05/22/19 20:02 98 Nasal Cannula 2.0 28 05/22/19 20:00 98.3 45 18 141/73 (95) 97 General Appearance: no apparent distress Neck: supple Cardiovascular: normal rate Respiratory/Chest: chest wall non-tender, lungs clear Abdomen: soft Extremities: no swelling Intake and Output 05/22/19 05/23/19 19:00 07:00 Intake Total 1060 ml 1210.0 ml Output Total 250 ml 500 ml Balance 810 ml 710.0 ml Intake IV Total 1060 ml 1210.0 ml Output Urine Total 250 ml 500 ml # Voids 1 2 Laboratory Tests Test 05/23/19 05:30 White Blood Count 8.3 K/UL (4.8-10.8) Red Blood Count 3.25 M/UL (4.70-6.10) L Hemoglobin 11.0 G/DL (14.2-18.0) L Hematocrit 33.3 % (42.0-52.0) L Mean Corpuscular Volume 103 FL (80-99) H Mean Corpuscular Hemoglobin 33.9 PG (27.0-31.0) H Mean Corpuscular Hemoglobin Concent 33.0 G/DL (32.0-36.0) Red Cell Distribution Width 12.6 % (11.6-14.8) Platelet Count 228 K/UL (150-450) Mean Platelet Volume 7.0 FL (6.5-10.1) Neutrophils (%) (Auto) 66.8 % (45.0-75.0) Lymphocytes (%) (Auto) 20.5 % (20.0-45.0) Monocytes (%) (Auto) 7.6 % (1.0-10.0) Eosinophils (%) (Auto) 4.5 % (0.0-3.0) H Basophils (%) (Auto) 0.6 % (0.0-2.0) Sodium Level 144 MMOL/L (136-145) Potassium Level 3.4 MMOL/L (3.5-5.1) L Chloride Level 109 MMOL/L (98-107) H Carbon Dioxide Level 29 MMOL/L (21-32) Anion Gap 6 mmol/L (5-15) Blood Urea Nitrogen 27 mg/dL (7-18) H Creatinine 1.3 MG/DL (0.55-1.30) Estimat Glomerular Filtration Rate mL/min (>60) Glucose Level 124 MG/DL (74-106) H Calcium Level 9.1 MG/DL (8.5-10.1) Cedric Campuzano MD May 23, 2019 18:48
--- NOTE | 2019-05-23 19:30 | NUR ---
HAND-OFF: Report given to Luis RUBIN and Betty RUBIN. Patient in stable condition.
--- NOTE | 2019-05-23 19:45 | NUR ---
NURSE NOTES: Pt lying in bed w/bed in lowest position and call light within reach. Pt A&Ox4, VSS, and in no apparent distress. IV site intact/asymptomatic w/IVF infusing and surgical dressing C/D/I. Will continue to monitor.
--- NOTE | 2019-05-23 20:03 | General Progress Note ---
Assessment/Plan Assessment/Plan: Assessment - SBO - s/p laparoscopy, lysis of adhesions, bowel resection Recommendations - post op diet per surgery - IVF - Follow exam Subjective Allergies: Coded Allergies: No Known Allergies (Unverified , 10/07/12) Subjective above noted (+) flatus and BM pain controlled Objective Last 24 Hour Vital Signs Date Time Temp Pulse Resp B/P (MAP) Pulse Ox O2 Delivery O2 Flow Rate FiO2 05/23/19 16:00 97.9 44 20 152/73 (99) 96 05/23/19 15:05 164/76 05/23/19 15:00 43 164/76 (105) 05/23/19 12:00 97.7 40 20 168/84 (112) 98 05/23/19 09:00 Room Air 05/23/19 08:00 97.2 40 21 158/75 (102) 97 05/23/19 07:34 96 Room Air 21 05/23/19 04:00 98.3 44 18 151/71 (97) 96 05/23/19 00:00 98.5 48 18 143/68 (93) 97 05/22/19 21:00 Room Air Intake and Output 05/22/19 05/23/19 19:00 07:00 Intake Total 1060 ml 1210.0 ml Output Total 250 ml 500 ml Balance 810 ml 710.0 ml IV Total 1060 ml 1210.0 ml Output Urine Total 250 ml 500 ml # Voids 1 2 Laboratory Tests 05/23/19 05:30: White Blood Count 8.3, Red Blood Count 3.25L, Hemoglobin 11.0L, Hematocrit 33.3L , Mean Corpuscular Volume 103H, Mean Corpuscular Hemoglobin 33.9H, Mean Corpuscular Hemoglobin Concent 33.0, Red Cell Distribution Width 12.6, Platelet Count 228, Mean Platelet Volume 7.0, Neutrophils (%) (Auto) 66.8, Lymphocytes (% ) (Auto) 20.5, Monocytes (%) (Auto) 7.6, Eosinophils (%) (Auto) 4.5H, Basophils (%) (Auto) 0.6, Sodium Level 144, Potassium Level 3.4L, Chloride Level 109H, Carbon Dioxide Level 29, Anion Gap 6, Blood Urea Nitrogen 27H, Creatinine 1.3, Estimat Glomerular Filtration Rate , Glucose Level 124H, Calcium Level 9.1 Height (Feet): 6 Height (Inches): 1.00 Weight (Pounds): 202 Objective WDWN NCAT supple CTA RRR abd soft wounds OK no edema Obi Hernandez MD May 23, 2019 20:03
[2019-05-24] VITALS: BP 141/71
[2019-05-24 04:00] VITALS: BP 149/71
[2019-05-24] MEDS: Zosyn 4.5gm in NS 110ml q8h IVPB SCH ×2 (05:54→14:14)
[2019-05-24] MEDS: Morphine Sulfate 2mg/ml Inj(IV/IM USE ONLY) IVP PRN ×2 (06:09→22:00)
[2019-05-24 06:46] LABS: ANION GAP 7 mmol/L (5-15); BLOOD UREA NITROGEN 21 mg/dL (7-18); CALCIUM 9.8 MG/DL (8.5-10.1); CARBON DIOXIDE 28 MMOL/L (21-32); CHLORIDE 109 MMOL/L (98-107); CREATININE 1.3 MG/DL (0.55-1.30); POTASSIUM 3.8 MMOL/L (3.5-5.1); SODIUM 143 MMOL/L (136-145)
--- NOTE | 2019-05-24 07:20 | NUR ---
HAND-OFF: Report given to SCOTTIE Pruett.
--- NOTE | 2019-05-24 07:59 | NUR ---
NURSE NOTES: Received report from SCOTTIE Smith. Rounding done with outgoing nurse. Pt a/o x 4, in bed. No respiratory distress noted. Denies pain at this time. Abdominal surgical site dressing is C/D/I. Lt hand IV is patent. Regular IV fluid is running at this time. Bed in lowest position, call light within reach. Will continue to monitor.
[2019-05-24 08:00] VITALS: BP 121/59
--- NOTE | 2019-05-24 08:00 | NUR ---
NURSE NOTES: PT IS AXOX4, CALM, EATING BREAKFAST IN BED. PT STATES PAIN IS WELL-CONTROLLED AT THIS TIME. STATES HE FEELS "QUEASY" BUT NO NAUSEA, REFUSED PRN NAUSEA MEDICATIONS. IN NO APPARENT DISTRESS AT THIS TIME. 3 LAP SITES OF ABDOMEN ARE WITH 4X4 AND TEGADERM; CLEAN, DRY AND INTACT. CALL LIGHT WITHIN REACH . WILL CONTINUE OT MONITOR.
[2019-05-24] MEDS: Pantoprazole Inj IVP SCH (08:43)
[2019-05-24] MEDS: Losartan 50mg tab ORAL SCH (08:43)
[2019-05-24] MEDS: D5 1/2NS w/KCl 20mEq 1,000 ML IV SCH (09:18)
--- NOTE | 2019-05-24 10:31 | NUR ---
RD ASSESSMENT & RECOMMENDATIONS SEE CARE ACTIVITY FOR COMPLETE ASSESSMENT DAILY ESTIMATED NEEDS: Needs based on Surgery 90.5kg 25-35 kcals/kg 8286-2488 total kcals 1-1.5 g protein/kg 91-136 g total protein 25-30 mL/kg 6804-2867 total fluid mLs NUTRITION DIAGNOSIS: Altered GI fxn r/t bowel obstruction as evidenced by s/p Lap small bowel resection, w lysis of adhesions, diet now advanced to clears. CURRENT DIET: Advanced to CLD PO DIET RECOMMENDATIONS: Advance as tolerated to-> Full Liquid-> then LOW FIBER/ SOFT DIET ADDITIONAL RECOMMENDATIONS: 1) Obtain a standing weight as able 2) Check lytes daily 3) Diet edu on low fiber diet provided
--- NOTE | 2019-05-24 11:10 | General Progress Note ---
Assessment/Plan Problem List: (1) Small bowel obstruction ICD Codes: K56.609 - Unspecified intestinal obstruction, unspecified as to partial versus complete obstruction SNOMED: 153824386 (2) HTN (hypertension) Assessment & Plan: ok for now ICD Codes: I10 - Essential (primary) hypertension SNOMED: 46076951 (3) Afib ICD Codes: I48.91 - Unspecified atrial fibrillation SNOMED: 93617653 (4) Leukocytosis Assessment & Plan: worse ICD Codes: D72.829 - Elevated white blood cell count, unspecified SNOMED: 415260090, 066228802 Qualifiers: Qualified Codes: D72.828 - Other elevated white blood cell count (5) Bradycardia ICD Codes: R00.1 - Bradycardia, unspecified SNOMED: 21911763 (6) Hypokalemia ICD Codes: E87.6 - Hypokalemia SNOMED: 02087793 Assessment/Plan: DC IVF diet per Dr Horne abxs per ID Discussed with pt Discussed with dr Horne advance diet and possible Dc tomorrow Subjective Allergies: Coded Allergies: No Known Allergies (Unverified , 10/07/12) Subjective TOLERATED LIQUID DIET Objective Last 24 Hour Vital Signs Date Time Temp Pulse Resp B/P (MAP) Pulse Ox O2 Delivery O2 Flow Rate FiO2 05/24/19 09:00 Room Air 05/24/19 08:43 121/59 05/24/19 08:00 97.9 44 18 121/59 (79) 97 05/24/19 04:00 98.0 40 18 149/71 (97) 98 05/24/19 00:00 99.7 40 16 141/71 (94) 98 05/23/19 21:47 96 Room Air 21 05/23/19 21:00 Room Air 05/23/19 20:00 98.4 43 20 149/69 (95) 94 05/23/19 16:00 97.9 44 20 152/73 (99) 96 05/23/19 15:05 164/76 05/23/19 15:00 43 164/76 (105) 05/23/19 12:00 97.7 40 20 168/84 (112) 98 Intake and Output 05/23/19 05/24/19 18:59 06:59 Intake Total 480 ml 501.5 ml Balance 480 ml 501.5 ml Intake Oral 480 ml IV Total 501.5 ml # Voids 1 # Bowel Movements 1 1 Laboratory Tests 05/24/19 05:30: Sodium Level 143, Potassium Level 3.8, Chloride Level 109H, Carbon Dioxide Level 28, Anion Gap 7, Blood Urea Nitrogen 21H, Creatinine 1.3, Estimat Glomerular Filtration Rate , Glucose Level 113H, Calcium Level 9.8 Height (Feet): 6 Height (Inches): 1.00 Weight (Pounds): 202 Cardiovascular: normal rate Respiratory/Chest: lungs clear Abdomen: normal bowel sounds Dandy Lara MD May 24, 2019 11:10
[2019-05-24 12:00] VITALS: BP 140/79
--- NOTE | 2019-05-24 12:06 | NUR ---
CASE MANAGEMENT: REVIEW 05/24/2019 SI:SBO. SEPSIS. T 99.7 HR 40 RR 16 B/P 141/71 SATS 98% ON RA CL 109 BUN 21 GLU 113 IS:COZAAR PO QD ZOSYN IV Q8H PROTONIX IV QD MED/SURG STATUS PLAN OF CARE: PT EVAL CLD
--- NOTE | 2019-05-24 15:18 | Infectious Diseases Prog Note ---
Assessment/Plan Assessment/Plan ASSESSMENT AND PLAN: 1. SBO, sepsis, leukocytosis - s/p surgery - operative report noted - continue zosyn for now - day # 3 abx post op - clinically improved, leukocytosis resolved - monitor labs - consider oral abx soon 2. The patient has a history of atrial fibrillation. I think it is intermittent. He has been on Eliquis in the past. 3. The patient has history of hypertension. Blood pressure treatment per Dr. Lara. 4. History of sleep apnea. He is on CPAP. 5. History of GERD. 6. No known drug allergies. 7. Social history is negative. 8. Family history is noncontributory. 9. MAR is noted. 10. Case was discussed with RN. 11. Case was discussed with the patient. 12. Case was discussed with Dr. Lara. 13. Continue treatment per primary consultants. Subjective Constitutional: Denies: fever HEENT: Denies: congestion Respiratory: Denies: shortness of breath Cardiovascular: Denies: chest pain Gastrointestinal/Abdominal: Denies: nausea, vomiting, diarrhea Genitourinary: Reports: other - no lopez Neurologic: Denies: headache Psychiatric: Denies: depression Skin: Denies: rash Hematologic: Denies: bleeding Musculoskeletal: Denies: pain Allergies: Coded Allergies: No Known Allergies (Unverified , 10/07/12) Objective Vital Signs Last 24 Hour Vital Signs Date Time Temp Pulse Resp B/P (MAP) Pulse Ox O2 Delivery O2 Flow Rate FiO2 05/24/19 12:00 98.1 42 18 140/79 (99) 99 05/24/19 09:00 Room Air 05/24/19 08:43 121/59 05/24/19 08:00 97.9 44 18 121/59 (79) 97 05/24/19 04:00 98.0 40 18 149/71 (97) 98 05/24/19 00:00 99.7 40 16 141/71 (94) 98 05/23/19 21:47 96 Room Air 21 05/23/19 21:00 Room Air 05/23/19 20:00 98.4 43 20 149/69 (95) 94 05/23/19 16:00 97.9 44 20 152/73 (99) 96 Height (Feet): 6 Height (Inches): 1.00 Weight (Pounds): 202 General Appearance: no acute distress HEENT: normocephalic, atraumatic, mucous membranes moist Respiratory/Chest: lungs clear, normal breath sounds, no respiratory distress, no accessory muscle use Cardiovascular: normal rate, regular rhythm, no gallop/murmur Abdomen: normal bowel sounds, soft, non tender, no organomegaly, non distended Genitourinary: other - no lopez Extremities: no cyanosis Skin: no rash Neurologic/Psychiatric: supervisor enrobing II-XII grossly normal, abnormal gait, alert, responsive Lymphatic: no neck adenopathy Musculoskeletal: no effusion Objective CT abdomen and pelvis: IMPRESSION: Atherosclerotic changes without AAA or dissection. Dilated fluid-filled small bowel suspicious for obstructive process with suspected distal transition in left lower quadrant. Trace free fluid with interloop/mesenteric edema. Recommend follow-up. Trace pericardial effusion and other findings, as above. Chest x-ray noted - nad, report noted Microbiology Date/Time Source Procedure Growth Status 05/20/19 05:35 Blood Blood Culture - Preliminary NO GROWTH AFTER 48 HOURS Resulted 05/20/19 17:56 Urine,Clean Catch Urine Culture - Final NO GROWTH AFTER 48 HOURS Complete Labs Test 05/22/19 05:30 05/23/19 05:30 05/24/19 05:30 White Blood Count 14.1 K/UL (4.8-10.8) 8.3 K/UL (4.8-10.8) Red Blood Count 3.66 M/UL (4.70-6.10) 3.25 M/UL (4.70-6.10) Hemoglobin 12.4 G/DL (14.2-18.0) 11.0 G/DL (14.2-18.0) Hematocrit 37.8 % (42.0-52.0) 33.3 % (42.0-52.0) Mean Corpuscular Volume 103 FL (80-99) 103 FL (80-99) Mean Corpuscular Hemoglobin 33.9 PG (27.0-31.0) 33.9 PG (27.0-31.0) Mean Corpuscular Hemoglobin Concent 32.9 G/DL (32.0-36.0) 33.0 G/DL (32.0-36.0) Red Cell Distribution Width 12.8 % (11.6-14.8) 12.6 % (11.6-14.8) Platelet Count 246 K/UL (150-450) 228 K/UL (150-450) Mean Platelet Volume 7.1 FL (6.5-10.1) 7.0 FL (6.5-10.1) Neutrophils (%) (Auto) 80.0 % (45.0-75.0) 66.8 % (45.0-75.0) Lymphocytes (%) (Auto) 12.0 % (20.0-45.0) 20.5 % (20.0-45.0) Monocytes (%) (Auto) 6.9 % (1.0-10.0) 7.6 % (1.0-10.0) Eosinophils (%) (Auto) 0.7 % (0.0-3.0) 4.5 % (0.0-3.0) Basophils (%) (Auto) 0.3 % (0.0-2.0) 0.6 % (0.0-2.0) Sodium Level 143 MMOL/L (136-145) 144 MMOL/L (136-145) 143 MMOL/L (136-145) Potassium Level 3.9 MMOL/L (3.5-5.1) 3.4 MMOL/L (3.5-5.1) 3.8 MMOL/L (3.5-5.1) Chloride Level 107 MMOL/L (98-107) 109 MMOL/L (98-107) 109 MMOL/L (98-107) Carbon Dioxide Level 32 MMOL/L (21-32) 29 MMOL/L (21-32) 28 MMOL/L (21-32) Anion Gap 4 mmol/L (5-15) 6 mmol/L (5-15) 7 mmol/L (5-15) Blood Urea Nitrogen 31 mg/dL (7-18) 27 mg/dL (7-18) 21 mg/dL (7-18) Creatinine 1.5 MG/DL (0.55-1.30) 1.3 MG/DL (0.55-1.30) 1.3 MG/DL (0.55-1.30) Estimat Glomerular Filtration Rate mL/min (>60) mL/min (>60) mL/min (>60) Glucose Level 125 MG/DL (74-106) 124 MG/DL (74-106) 113 MG/DL (74-106) Calcium Level 9.1 MG/DL (8.5-10.1) 9.1 MG/DL (8.5-10.1) 9.8 MG/DL (8.5-10.1) Total Bilirubin 0.7 MG/DL (0.2-1.0) Aspartate Amino Transf (AST/SGOT) 19 U/L (15-37) Alanine Aminotransferase (ALT/SGPT) 20 U/L (12-78) Alkaline Phosphatase 43 U/L (46-116) Total Protein 6.4 G/DL (6.4-8.2) Albumin 2.7 G/DL (3.4-5.0) Globulin 3.7 g/dL Albumin/Globulin Ratio 0.7 (1.0-2.7) Laboratory Tests Test 05/24/19 05:30 Sodium Level 143 MMOL/L (136-145) Potassium Level 3.8 MMOL/L (3.5-5.1) Chloride Level 109 MMOL/L (98-107) H Carbon Dioxide Level 28 MMOL/L (21-32) Anion Gap 7 mmol/L (5-15) Blood Urea Nitrogen 21 mg/dL (7-18) H Creatinine 1.3 MG/DL (0.55-1.30) Estimat Glomerular Filtration Rate mL/min (>60) Glucose Level 113 MG/DL (74-106) H Calcium Level 9.8 MG/DL (8.5-10.1) Current Medications Medications (Trade) Dose Ordered Sig/Pavan Route PRN Reason Start Time Stop Time Status Last Admin Dose Admin Diphenhydramine HCl (Benadryl) 12.5 mg Q6H PRN IVP Itching/Pruritis 05/21/19 16:00 06/20/19 15:59 Losartan Potassium (Cozaar) 100 mg DAILY ORAL 05/24/19 09:00 06/23/19 08:59 05/24/19 08:43 Metoclopramide HCl (Reglan) 10 mg Q6H PRN IVP Nausea & Vomiting 05/21/19 16:00 06/20/19 15:59 Morphine Sulfate (Morphine Sulfate) 1 mg Q4H PRN IVP pain scale 1-3 05/21/19 16:00 8/27/19 15:59 Morphine Sulfate (Morphine Sulfate) 2 mg Q4H PRN IVP pain scale 4-6 05/21/19 16:00 05/28/19 15:59 05/24/19 06:09 Morphine Sulfate (Morphine Sulfate) 4 mg Q4H PRN IVP pain score 7-10 05/21/19 16:00 05/28/19 15:59 Ondansetron HCl (Zofran) 4 mg Q4H PRN IVP Nausea & Vomiting 05/19/19 21:45 06/18/19 21:44 05/20/19 13:50 Pantoprazole (Protonix) 40 mg DAILY IVP 05/19/19 12:15 06/18/19 12:14 05/24/19 08:43 Piperacillin Sod/ Tazobactam Sod 4.5 gm/Sodium Chloride 110 ml @ 27.5 mls/hr EVERY 8 HOURS IVPB 05/20/19 22:00 05/25/19 21:59 05/24/19 14:14 Dmitriy Meneses MD May 24, 2019 15:18
[2019-05-24 16:00] VITALS: BP 151/72
--- NOTE | 2019-05-24 18:50 | Cardiology Progress Note ---
Assessment/Plan Assessment/Plan 1. Small bowel obstruction. 2. Internal hernia. 3. Paroxysmal episodes of atrial fibrillation. 4. Hypertension. 5. Obstructive sleep apnea. had bm on cozaar at home may restart old meds jef chronic per pt now on solid food restart eliquis Subjective Cardiovascular: Denies: chest pain, lightheadedness Respiratory: Denies: shortness of breath Gastrointestinal/Abdominal: Denies: abdominal pain, constipated Genitourinary: Denies: burning Objective Last 24 Hour Vital Signs Date Time Temp Pulse Resp B/P (MAP) Pulse Ox O2 Delivery O2 Flow Rate FiO2 05/24/19 16:00 97.3 43 18 151/72 (98) 99 05/24/19 12:00 98.1 42 18 140/79 (99) 99 05/24/19 09:00 Room Air 05/24/19 08:43 121/59 05/24/19 08:00 97.9 44 18 121/59 (79) 97 05/24/19 04:00 98.0 40 18 149/71 (97) 98 05/24/19 00:00 99.7 40 16 141/71 (94) 98 05/23/19 21:47 96 Room Air 21 05/23/19 21:00 Room Air 05/23/19 20:00 98.4 43 20 149/69 (95) 94 General Appearance: no apparent distress, alert Neck: supple Cardiovascular: normal rate, regular rhythm, bradycardia Respiratory/Chest: chest wall non-tender, lungs clear Abdomen: normal bowel sounds, non tender, soft Extremities: no swelling Intake and Output 05/23/19 05/24/19 19:00 07:00 Intake Total 480 ml 501.5 ml Balance 480 ml 501.5 ml Intake Oral 480 ml IV Total 501.5 ml # Voids 1 # Bowel Movements 1 1 Laboratory Tests Test 05/24/19 05:30 Sodium Level 143 MMOL/L (136-145) Potassium Level 3.8 MMOL/L (3.5-5.1) Chloride Level 109 MMOL/L (98-107) H Carbon Dioxide Level 28 MMOL/L (21-32) Anion Gap 7 mmol/L (5-15) Blood Urea Nitrogen 21 mg/dL (7-18) H Creatinine 1.3 MG/DL (0.55-1.30) Estimat Glomerular Filtration Rate mL/min (>60) Glucose Level 113 MG/DL (74-106) H Calcium Level 9.8 MG/DL (8.5-10.1) Cedric Campuzano MD May 24, 2019 18:50
[2019-05-24] MEDS ORDERED: HYDROcodone/Acetamin 5/325 tab ORAL PRN (19:15)
--- NOTE | 2019-05-24 19:16 | NUR ---
HAND-OFF: Report given to Desean HEBERT RN AND Layla ROBERTS RN.
[2019-05-24 20:00] VITALS: BP 119/68
--- NOTE | 2019-05-24 20:10 | NUR ---
NURSE NOTES: Pt received in bed able to make needs known, alert and oriented, no c/o pain or signs of distress, bed in lowest position, with head of bed elevated, call light within reach, 3 lap sites on abdomen intact with steri strips, no drainage, pt tolerated food well, no nausea or vomiting, will continue to monitor.
[2019-05-24] MEDS: Eliquis 5mg tablet ORAL SCH (20:18)
[2019-05-24] MEDS ORDERED: Piperacillin/Tazobactam 4.5 GM in NS 110 ML IVPB SCH (22:00)
--- NOTE | 2019-05-24 22:11 | NUR ---
NURSE NOTES: Pt used incentive spirometer while awake, up to 4000ml.
--- NOTE | 2019-05-24 23:37 | General Progress Note ---
Assessment/Plan Assessment/Plan: Assessment - SBO - s/p laparoscopy, lysis of adhesions, bowel resection Recommendations - post op diet per surgery - IVF - Follow exam Subjective Allergies: Coded Allergies: No Known Allergies (Unverified , 10/07/12) Subjective above noted (+) flatus and BM pain controlled tolerating PO Objective Last 24 Hour Vital Signs Date Time Temp Pulse Resp B/P (MAP) Pulse Ox O2 Delivery O2 Flow Rate FiO2 05/24/19 21:00 Room Air 05/24/19 20:00 97.8 46 18 119/68 (85) 96 05/24/19 16:00 97.3 43 18 151/72 (98) 99 05/24/19 12:00 98.1 42 18 140/79 (99) 99 05/24/19 09:00 Room Air 05/24/19 08:43 121/59 05/24/19 08:00 97.9 44 18 121/59 (79) 97 05/24/19 04:00 98.0 40 18 149/71 (97) 98 05/24/19 00:00 99.7 40 16 141/71 (94) 98 Intake and Output 05/23/19 05/24/19 19:00 07:00 Intake Total 480 ml 501.5 ml Balance 480 ml 501.5 ml Intake Oral 480 ml IV Total 501.5 ml # Voids 1 # Bowel Movements 1 1 Laboratory Tests 05/24/19 05:30: Sodium Level 143, Potassium Level 3.8, Chloride Level 109H, Carbon Dioxide Level 28, Anion Gap 7, Blood Urea Nitrogen 21H, Creatinine 1.3, Estimat Glomerular Filtration Rate , Glucose Level 113H, Calcium Level 9.8 Height (Feet): 6 Height (Inches): 1.00 Weight (Pounds): 202 Objective WDWN NCAT supple CTA RRR abd soft wounds OK no edema Obi Hernandez MD May 24, 2019 23:37
[2019-05-25] VITALS: BP 121/64
[2019-05-25 04:00] VITALS: BP 136/73
[2019-05-25 06:01] LABS: BASOPHILS % (AUTO) 0.4 % (0.0-2.0); EOSINOPHILS % (AUTO) 6.4 % (0.0-3.0); HEMATOCRIT 31.5 % (42.0-52.0); HEMOGLOBIN 10.8 G/DL (14.2-18.0); LYMPHOCYTES % (AUTO) 29.3 % (20.0-45.0); MEAN CORPUSCULAR VOLUME 100 FL (80-99); MONOCYTES % (AUTO) 8.9 % (1.0-10.0); PLATELET COUNT 217 K/UL (150-450); RED BLOOD COUNT 3.14 M/UL (4.70-6.10); RED CELL DISTRIBUTION WIDTH 11.9 % (11.6-14.8); WHITE BLOOD COUNT 6.9 K/UL (4.8-10.8)
[2019-05-25 06:09] LABS: ANION GAP 5 mmol/L (5-15); BLOOD UREA NITROGEN 17 mg/dL (7-18); CALCIUM 9.2 MG/DL (8.5-10.1); CARBON DIOXIDE 27 MMOL/L (21-32); CHLORIDE 108 MMOL/L (98-107); CREATININE 1.2 MG/DL (0.55-1.30); POTASSIUM 4.3 MMOL/L (3.5-5.1); SODIUM 140 MMOL/L (136-145)
--- NOTE | 2019-05-25 07:13 | NUR ---
HAND-OFF: Report given to SCOTTIE Becerra.
--- NOTE | 2019-05-25 07:22 | NUR ---
NURSE NOTES: Received report from SCOTTIE Fuentes. Rounding done with outgoing nurse. Pt a/o x 4, in bed. Abdominal surgical site dressing is C/D/I. Denies any pain at this time. Bed in lowest position, call light within reach. Will continue to monitor.
[2019-05-25 08:00] VITALS: BP 151/75
[2019-05-25] MEDS: Eliquis 5mg tablet ORAL SCH (09:04)
[2019-05-25] MEDS: Losartan 50mg tab ORAL SCH (09:04)
[2019-05-25] MEDS ORDERED: COLACE100 MG ORAL (11:34)
[2019-05-25] MEDS ORDERED: NORCO 5-325 TA1 EACH ORAL (11:34)
[2019-05-25 12:00] VITALS: BP 154/72
--- NOTE | 2019-05-25 12:00 | NUR ---
NURSE NOTES: Reconcile meds with Dr. Lara and MD ordered continue all home meds. MD also ordered D/C with home health for surgical wound treatment. Noted and carried out.
--- NOTE | 2019-05-25 12:30 | General Progress Note ---
Progress Note Progress Note tolerating diet ambulatory had multiple BM no n/v/f/c labs okay exam benign abd soft nt/nd, bs+ wound c/d/i d/c home f/u in 1=2 weeks rx given thank you Hernesto Horne May 25, 2019 12:30
--- NOTE | 2019-05-25 13:00 | NUR ---
NURSE NOTES: Received order for home health from dr. Lara. per called and faxed info to [facility] at [phone](P) [phone](F) multiple attempts where made but unable to get hold of anyone director environmental. I will f/u as needed. plan to d/c home today. HH: [facility] health: [phone]
--- NOTE | 2019-05-25 13:00 | NUR ---
NURSE NOTES: Faxed pt's information and home health order to [facility] .
[2019-05-25] MEDS ORDERED: NS 275ml ONE (13:19)
[2019-05-25] MEDS ORDERED: Tubing IV Secondary IV ONE (13:19)
--- NOTE | 2019-05-25 13:25 | NUR ---
NURSE NOTES: Discharge instruction was given including written prescription. Belongings were checked with pt and given to pt. Removed IV line and arm band. Pt discharged in stable condition with his friend.
--- NOTE | 2019-05-25 13:55 | General Progress Note ---
Assessment/Plan Assessment/Plan: Assessment - SBO - s/p laparoscopy, lysis of adhesions, bowel resection Recommendations - post op diet per surgery - IVF - Follow exam Subjective Allergies: Coded Allergies: No Known Allergies (Unverified , 10/07/12) Subjective above noted (+) flatus and BM pain controlled tolerating PO solids Objective Last 24 Hour Vital Signs Date Time Temp Pulse Resp B/P (MAP) Pulse Ox O2 Delivery O2 Flow Rate FiO2 05/25/19 12:00 97.4 42 21 154/72 (99) 96 05/25/19 09:04 151/75 05/25/19 09:00 Room Air 05/25/19 08:00 98.0 55 20 151/75 (100) 97 05/25/19 04:00 97.3 44 17 136/73 (94) 98 05/25/19 00:00 97.8 41 16 121/64 (83) 97 05/24/19 21:00 Room Air 05/24/19 20:00 97.8 46 18 119/68 (85) 96 05/24/19 16:00 97.3 43 18 151/72 (98) 99 Intake and Output 05/24/19 05/25/19 18:59 06:59 Intake Total 642.5 ml 240 ml Balance 642.5 ml 240 ml Intake Oral 300 ml 240 ml IV Total 342.5 ml # Voids 3 2 # Bowel Movements 2 Laboratory Tests 05/25/19 04:40: White Blood Count 6.9, Red Blood Count 3.14L, Hemoglobin 10.8L, Hematocrit 31.5L , Mean Corpuscular Volume 100H, Mean Corpuscular Hemoglobin 34.5H, Mean Corpuscular Hemoglobin Concent 34.4, Red Cell Distribution Width 11.9, Platelet Count 217, Mean Platelet Volume 8.0, Neutrophils (%) (Auto) 55.0, Lymphocytes (% ) (Auto) 29.3, Monocytes (%) (Auto) 8.9, Eosinophils (%) (Auto) 6.4H, Basophils (%) (Auto) 0.4, Sodium Level 140, Potassium Level 4.3, Chloride Level 108H, Carbon Dioxide Level 27, Anion Gap 5, Blood Urea Nitrogen 17, Creatinine 1.2, Estimat Glomerular Filtration Rate , Glucose Level 104, Calcium Level 9.2 Height (Feet): 6 Height (Inches): 1.00 Weight (Pounds): 202 Objective WDWN NCAT supple CTA RRR abd soft wounds OK no edema Obi Hernandez MD May 25, 2019 13:55
--- NOTE | 2019-05-25 14:03 | General Progress Note ---
Assessment/Plan Problem List: (1) Small bowel obstruction ICD Codes: K56.609 - Unspecified intestinal obstruction, unspecified as to partial versus complete obstruction SNOMED: 663929799 (2) HTN (hypertension) Assessment & Plan: ok for now ICD Codes: I10 - Essential (primary) hypertension SNOMED: 63146505 (3) Afib ICD Codes: I48.91 - Unspecified atrial fibrillation SNOMED: 61554626 (4) Leukocytosis Assessment & Plan: worse ICD Codes: D72.829 - Elevated white blood cell count, unspecified SNOMED: 504437394, 608752370 Qualifiers: Qualified Codes: D72.828 - Other elevated white blood cell count (5) Bradycardia ICD Codes: R00.1 - Bradycardia, unspecified SNOMED: 18202797 (6) Hypokalemia ICD Codes: E87.6 - Hypokalemia SNOMED: 44313055 Assessment/Plan: Dc today with home health Subjective Allergies: Coded Allergies: No Known Allergies (Unverified , 10/07/12) Subjective all noted Objective Last 24 Hour Vital Signs Date Time Temp Pulse Resp B/P (MAP) Pulse Ox O2 Delivery O2 Flow Rate FiO2 05/25/19 12:00 97.4 42 21 154/72 (99) 96 05/25/19 09:04 151/75 05/25/19 09:00 Room Air 05/25/19 08:00 98.0 55 20 151/75 (100) 97 05/25/19 04:00 97.3 44 17 136/73 (94) 98 05/25/19 00:00 97.8 41 16 121/64 (83) 97 05/24/19 21:00 Room Air 05/24/19 20:00 97.8 46 18 119/68 (85) 96 05/24/19 16:00 97.3 43 18 151/72 (98) 99 Intake and Output 05/24/19 05/25/19 18:59 06:59 Intake Total 642.5 ml 240 ml Balance 642.5 ml 240 ml Intake Oral 300 ml 240 ml IV Total 342.5 ml # Voids 3 2 # Bowel Movements 2 Laboratory Tests 05/25/19 04:40: White Blood Count 6.9, Red Blood Count 3.14L, Hemoglobin 10.8L, Hematocrit 31.5L , Mean Corpuscular Volume 100H, Mean Corpuscular Hemoglobin 34.5H, Mean Corpuscular Hemoglobin Concent 34.4, Red Cell Distribution Width 11.9, Platelet Count 217, Mean Platelet Volume 8.0, Neutrophils (%) (Auto) 55.0, Lymphocytes (% ) (Auto) 29.3, Monocytes (%) (Auto) 8.9, Eosinophils (%) (Auto) 6.4H, Basophils (%) (Auto) 0.4, Sodium Level 140, Potassium Level 4.3, Chloride Level 108H, Carbon Dioxide Level 27, Anion Gap 5, Blood Urea Nitrogen 17, Creatinine 1.2, Estimat Glomerular Filtration Rate , Glucose Level 104, Calcium Level 9.2 Height (Feet): 6 Height (Inches): 1.00 Weight (Pounds): 202 Dandy Lara MD May 25, 2019 14:03
--- NOTE | 2019-05-26 13:15 | Cardiology Report ---
APPROVED REPORT EKG Measurement Heart [id number] Sinus bradycardia with marked sinus arrhythmia Incomplete right bundle branch block Borderline ECG
--- NOTE | 2019-05-27 13:08 | Discharge Summary ---
Discharge Summary Discharge Summary _ DATE OF ADMISSION: 05/19/2019 DATE OF DISCHARGE: 05/25/2019 DISCHARGED BY: Dr. Lara REASON FOR ADMISSION: 73 years old male with past medical history of intermittent atrial fibrillation , started on Eliquis about a month ago, obstructive sleep apnea, on CPAP, was at a birthday democrat when he developed severe lower abdominal pain. Patient reported drinking alcohol and having a shellfish. Upon returning home he vomited few times and continued to have pain. Patient presented to emergency room for further evaluation. Pain reported as constant and severe 9 out of 10 on a scale 1-10. Patient was on Eliquis for paroxysmal atrial fibrillation. Two days ago patient started on Keflex for tear n his nose on the left side. He denied dysuria, hematuria, change in bowel movement. Upon evaluation vital signs were stable. Laboratory work-up revealed initially mild leukocytosis WBC 11, hemoglobin 14.2 , hematocrit 42.7 with MCV 100. Platelet count 300. INR 0.9. Stable electrolytes. BUN 26, creatinine 1.4. Glucose 137. Stable LFT and lipase. Troponin negative. EKG revealed, sinus bradycardia no acute ischemic changes. Chest x-ray revealed no acute cardiopulmonary pathology. CT of the abdomen and pelvis demonstrated dilated fluid-filled small bowels, suspicious for obstructive process with suspected distal transition in the lower lower quadrant. Trace free fluid . Patient was provided with analgesia. Patient was unable to be transferred to [facility] due to lack of the available beds and was placed on the waiting list . Patient started on the IV hydration and subsequently admitted to the hospital for further management. CONSULTANTS: food and beverage attendant Dr. Campuzano ID specialist GI specialist Dr. Hernandez surgery Dr. Horne HOSPITAL COURSE: Patient was kept n.p.o. IV fluids continued. Pain management was addressed. Patient started on the IV Protonix. GI specialist and general surgeon seen and evaluated patient. Patient started on nasogastric suctioning for bowel decompression. Surgeon recommended initially medical management with NG tube to low intermittent suction with flushing every 4 hours to keep it patent. Eliquis was on hold. Patient was encouraged to ambulate frequently with assistant professor of dietetics. The next day leukocytosis up to 20.7. Patient started on empiric antibiotics as per ID specialist recommendation. Pain management was addressed. Antiemetic provided as needed. Small bowel follow-through revealed high-grade small bowel obstruction. Unfortunately conservative approach to manage small bowel obstruction did not work since patient had persistent small bowel obstruction, and decision was made to proceed with the surgery. 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 Segment of bowel was resected. Postoperative course of recovery was uneventful . Patient initially was kept n.p.o. Pain management was addressed , supportive care provided . Patient was encouraged to ambulate. Antibiotics continued. Blood cultures were negative. Urine culture were negative. Leukocytosis resolved. As bowel function returned , patient slowly started on diet and was advanced as tolerated. Patient remains in sinus bradycardia, but asymptomatic. Telemetry showed sinus bradycardia , no ischemia. No ectopy, no skipped beats , no blocks. Computer Technology Instructor followed due to paroxysmal atrial fibrillation. Patient was in sinus rhythm. Eliquis initially was on hold. Eliquis resumed later after surgery when patient tolerated diet Patient started on Cozaar. Blood pressure remained stable. CPAP provided at night as needed. Eliquis was restarted. Hemoglobin and hematocrit were closely monitored with goal to keep hemoglobin above 7. Hemoglobin and hematocrit remained stable, no evidence of bleeding. Renal parameters and electrolytes were closely monitored. Electrolytes corrected as needed. Prior to discharge creatinine from 1.4 down to 1.2. BUN from 26 down to 17. Electrolytes remained stable. Patient was able to tolerate diet , had multiply BM and was ambulatory. Clinical exam was benign. Patient clinically stabilized and was ready for discharge home with home health services. Prescription provided .Outpatient follow-up with surgeon in clinic in 1-2 weeks. FINAL DIAGNOSES: Small bowel obstruction Status post laparoscopy, lysis of adhesion, bowel resection Sepsis, leukocytosis Paroxysmal atrial fibrillation Hypertension Obstructive sleep apnea Hypokalemia Bradycardia DISCHARGE MEDICATIONS: See Medication Reconciliation list. DISCHARGE INSTRUCTIONS: Patient was discharged home with home health services. Follow up with surgeon in 1 to 2 weeks. I have been assigned to dictate discharge summary for this account. I was not involved in the patient's management. Lorenza Harris NP May 27, 2019 13:08
--- NOTE | 2019-05-27 13:38 | CDS Physician Query ---
Clarification is required for compliance, coding accuracy, and to reflect severity of illness for this patient Dear Dr. Dandy Lara Date: 05/27/2019 Assistant Production Editor/CDS Name: Lindsey Alfonso 05/20 ID note: The patient has what looks like small bowel obstruction with possible sepsis and elevated white count. Continue Zosyn 4.5 grams every 8 hours of extended dosing for bowel obstruction and sepsis Vitals/Labs on admission day 05/19: WBC 11, temp 97.7, WY 62, RR 16 Clarification is needed for one (or more) of the following conditions in order to accurately assign the "present on admission' indicator. Please choose the answer that best indicates whether the associated condition was present at the time of the order for inpatient admission. Thank you. Was the Sepsis Present on admission? [x] YES [] NO [] Clinically Undeterminable Physician signature Date Please also document in your Progress Notes and/or Discharge Summary and indicate if the condition was present on admission. MAGALI
== END 2019-05-25 13:20 | disposition home health service (06) | DRG 854 ==
LOC: EMR 03:10 → 3E 03:18 → EDBEDREQ 06:05 → 3E 05-21 16:29
PROC: 0DB84ZZ Excision of Small Intestine, Percutaneous Endoscopic Approach (ICD-10-PCS; principal; 2019-05-21 10:00)
PROC: 0DQV4ZZ Repair Mesentery, Percutaneous Endoscopic Approach (ICD-10-PCS; principal; 2019-05-21 10:00)
PROC: 0DNU4ZZ Release Omentum, Percutaneous Endoscopic Approach (ICD-10-PCS; principal; 2019-05-21 10:00)
DX: A41.9 Sepsis, unspecified organism (principal); K45.0 Other specified abdominal hernia with obstruction, without gangrene; K56.50 Intestinal adhesions [bands], unspecified as to partial versus complete obstruction; Q45.9 Congenital malformation of digestive system, unspecified; G47.33 Obstructive sleep apnea (adult) (pediatric); I48.0 Paroxysmal atrial fibrillation; Z79.01 Long term (current) use of anticoagulants; I10 Essential (primary) hypertension; E87.6 Hypokalemia; R00.1 Bradycardia, unspecified; K21.9 Gastro-esophageal reflux disease without esophagitis; Z87.891 Personal history of nicotine dependence
CPT/HCPCS: 36415; 71045; 74018; 74175; 74250; 80048; 80053; 81003; 82550; 83605; 83690; 84484; 85007; 85025; 85610; 85730; 86850; 86900; 86901; 87040; 87086; 93005; 94003; 94150; 96361; 96365; 96368; 96375; 96376; 99285; J2405